=== PATIENT | female | born 1955 | race Caucasian/White ===

== ENCOUNTER 2019-08-23 11:10 | Emergency (ER) | payer MEDICARE, MEDICAID, SELFPAY ==
[2019-08-23 11:16] VITALS: BMI 25.7
[2019-08-23 11:20] VITALS: BP 230/121; PULSE 97; RESP 18; TEMP 36.8; O2SAT 96
--- NOTE | 2019-08-23 11:21 | ECG_ITS ---
Measurements Intervals [place] Rate: 85 P: 76 OK: 143 QRS: 46 QRSD: 94 T: 62 QT: 376 QTc: 447 SINUS RHYTHM POSSIBLE LEFT ATRIAL ENLARGEMENT [-0.1mV P WAVE IN V1/V2] POSSIBLE RIGHT VENTRICULAR CONDUCTION DELAY [RSR (QR) IN V1/V2] No previous ECG available for comparison Electronically Signed On 08-23-2019 14:16:05 CDT by Angela Mcnair M.D. [id number] f
--- NOTE | 2019-08-23 11:21 | XR_ITS ---
WS: [id number] XR chest 2V* [id number] REASON FOR EXAM: cp FINDINGS: The heart and mediastinal interfaces are normal. The lung jay are adequately aerated no pneumonia, pleural effusion, pulmonary edema, There is no pneumothorax or mass effect. The hilum is and apices are normal. There is arteriosclerotic changes seen in the arch of the aorta. No osseous abnormalities. XR/XR chest 2V* [id number] IMPRESSION: Arteriosclerotic changes.
--- NOTE | 2019-08-23 11:22 | W.ED.GENADLT ---
HPI - General Adult General: Chief complaint: General Medical Stated complaint: HIGH BP, PAIN NECK RT SIDE Time Seen by Provider: 08/23/19 11:13 Source: patient Mode of arrival: ambulatory Limitations: no limitations History of Present Illness: HPI narrative: 63-year-old female states she has a history high blood pressure. She states she has not taken her meds in 6 months due to moving here. She states she went to urgent care she needed blood pressure medicines. States her blood pressure was running very high and is 230/120 here. Patient states she had a sharp neck pain and slight headache. Denies any chest pain or passing out. Associated symptoms: Deny chest pain, dyspnea, headache(s), nausea, rash or vomiting Review of Systems Const: Denies: fever, chills, body aches or change in appetite Eyes: Denies: blurry vision or eye discomfort ENMT: Denies: throat pain or dental pain Card: Denies: chest pain Resp: Denies: shortness of breath GI: Denies: abdominal pain, nausea, vomiting or diarrhea : Denies: painful urination Musc: Reports: neck pain Skin/Breast: Denies: rash Neuro: Denies: headache Psych: Denies: depression Law/Lymph: Denies: easy bruising All/Imm: Denies: hives PFSH ED PFSH: Social History Smoking and tobacco status: current every day smoker Physical Exam Const: COMMON NORMALS: no apparent distress, oriented x3 and healthy appearing HENMT: COMMON NORMALS: normocephalic and head/scalp atraumatic HEAD & SCALP: normocephalic and atraumatic Eye: COMMON NORMALS: PERRL and EOMs intact bilaterally PUPIL: Yes PERRL Neck/C-Spine: COMMON NORMALS: full ROM and supple OTHER: point tender over right side of neck Chest: COMMONS NORMALS: inspection of chest normal and palpation of chest normal Resp: COMMON NORMALS: normal respiratory effort, no retractions, no use of accessory muscles and clear to auscultation bilaterally AUSCULTATION: clear to auscultation bilaterally Cardio: COMMON NORMALS: regular rate, regular rhythm and no murmurs RATE: regular rate RHYTHM: regular rhythm GI: COMMON NORMALS: normal to inspection, nondistended, normoactive bowel sounds, soft to palpation, non-tender and no masses PALPATION: Yes soft Extremity: COMMON NORMALS: normal to inspection and full ROM Neuro: COMMON NORMALS: oriented x3, moves all extremities and no focal motor deficits Psych: COMMON NORMALS: mental status grossly normal, thought process normal and cooperative THOUGHT PROCESS: normal thought process Skin: COMMON NORMALS: no rashes or lesions noted and no wounds GENERAL SKIN EXAM: no rashes or lesions noted Course Vital Signs: Vital signs: Vital Signs Temperature 98.3 F 08/23/19 11:20 Pulse Rate 79 08/23/19 12:28 Respiratory Rate 16 08/23/19 12:28 Blood Pressure 207/116 08/23/19 12:28 Pulse Oximetry 95 08/23/19 12:28 MDM - General Adult MDM Narrative: Medical decision making narrative: Patient presents here with high blood pressure is been untreated for months. She has neck pain is likely muscular. Patient is well-appearing here and has no signs of cardiac disease. Will start patient on blood pressure medicine she is stable for discharge Imaging Data^: CXR: Attestation: I personally reviewed and interpreted this imaging study as follows: Radiologist's impression: [address] [address] XRay Report Signed Patient: Rianna Gunn Unit #: [id number] : 1955 Age/Sex: 63 / F ADM Date: 08/23/19 Loc: ER Room/Bed: Attending Dr: Ordering Provider/Ordering MD: Kassie Ortega MD Date of Service: 08/23/19 Procedure(s): XR chest 2V* [id number] Accession Number(s): [id number] Report Number: [id number] WS: [id number] XR chest 2V* [id number] REASON FOR EXAM: cp FINDINGS: The heart and mediastinal interfaces are normal. The lung jay are adequately aerated no pneumonia, pleural effusion, pulmonary edema, There is no pneumothorax or mass effect. The hilum is and apices are normal. There is arteriosclerotic changes seen in the arch of the aorta. No osseous abnormalities. XR/XR chest 2V* [id number] IMPRESSION: Arteriosclerotic changes. EKG Data^: EKG 1: Attestation: I personally reviewed and interpreted this EKG as follows: EKG interpretation date: 08/23/19 EKG interpretation time: 11:32 Interpretation: nsr hr [address] or t wave abnormalities qrs 94 qtc 418 Computer generated interpretation: Chest X-Ray 08/23/19 11:21 IMPRESSION: Arteriosclerotic changes. Discharge Plan Discharge Patient Disposition: Home, Self-Care Clinical Impression: Neck pain Hypertension Qualifiers: Hypertension type: essential hypertension Qualified Code(s): I10 - Essential (primary) hypertension Condition: Stable Prescriptions: New amlodipine 10 mg tablet 10 mg PO DAILY Qty: 60 RF: 0 metoprolol tartrate 50 mg tablet 50 mg PO BID Qty: 90 RF: 0 No Action aspirin 81 mg Tablet,Delayed Release (Dr/Ec) 81 mg PO DAILY RF: 0 famotidine 20 mg Tablet 20 mg PO BID RF: 0 metoprolol tartrate 50 mg Tablet 50 mg PO BID RF: 0 alendronate 70 mg Tablet 70 mg PO Q7D RF: 0 Requip 0.25 mg Tablet 1 mg PO BEDTIME RF: 0 amlodipine 10 mg Tablet 10 mg PO DAILY RF: 0 Nitrostat 0.4 mg Tablet, Sublingual 0.4 mg SUBLINGUAL Q5M PRN (Reason: Chest Pain) RF: 0 albuterol sulfate 90 mcg/actuation Hfa Aerosol Inhaler 1 puff INHALATION QID PRN (Reason: Shortness Of Breath) RF: 0 Discharge Orders: Discharge Order (Routine); Ordered 08/23/19 Ordered By: Kassie Ortega Discharge Diet: Advance as tolerated Discharge Activity: Resume usual activity Patient Instructions: Hypertension (ED) Coding Level of Care Code ED Licensed Sales Assistant for Chg Fwd Exam Comprehensive
[2019-08-23 11:39] VITALS: BP 218/149
[2019-08-23] MEDS: cloNIDine 0.1 mg Tablet 0.2 MG PO (11:39)
[2019-08-23] MEDS: HYDROcodone-acetaminophen 5-325 mg Tablet 1 TAB PO (11:39)
[2019-08-23] MEDS: metoprolol succinate ER (24 HR) 50 mg Tablet PO (12:27)
[2019-08-23 12:28] VITALS: BP 207/116; PULSE 79; RESP 16; O2SAT 95
[2019-08-23 13:08] VITALS: BP 185/126; PULSE 83; RESP 17; O2SAT 98
== END 2019-08-23 13:08 | disposition home or self-care (01) ==
PROVIDERS: Emergency Provider Emergency Medicine
DX: I10 Essential (primary) hypertension (principal); M54.2 Cervicalgia; Z79.82 Long term (current) use of aspirin; F17.210 Nicotine dependence, cigarettes, uncomplicated
CPT/HCPCS: 12345; 71046; 93005; 99281; 99283

== ENCOUNTER 2019-10-31 10:28 | Outpatient (CLI) | payer MEDICARE, MEDICAID, SELFPAY ==
--- NOTE | 2019-10-31 11:15 | MR_ITS ---
WS: [id number] MRI CERVICAL SPINE NONCONTRAST TECHNIQUE: Sagittal T1, T2 and STIR imaging. Axial T2, gradient, and fiesta imaging. CLINICAL INFORMATION: CERVICALGIA COMPARISON: None FINDINGS: Some images degraded by motion. Mild cervical curve. Slight exaggeration normal cervical lordosis. No high-grade central canal stenos is. Cord signal is normal. Mild spondylitic changes. C2-C3: Mild right facet arthropathy. Spinal canal and foramen are patent. C3-C4: Mild bilateral bony foraminal narrowing. Moderate facet arthropathy. Spinal canal is patent. C4-C5: Mild disc bulging with osteophytic ridging. Moderate to advanced facet arthropathy. Moderate l eft and mild right bony foraminal narrowing. Mild central canal stenosis. C5-C6: Disc osteophyte complexes with endplate ridging. Mild central canal stenosis. Moderate to adva nced facet arthropathy. Moderate to severe bilateral bony foraminal narrowing worse in the left. C6-C7: Mild disc bulging with osteophytic ridging. Advanced left facet arthropathy. Moderate to sever e bilateral bony foraminal narrowing. Mild central canal stenosis. C7-T1: Moderate left and no significant right foraminal narrowing. Spinal canal is patent. Tiny disc protrusions in the upper thoracic spine at T2-3 and T3-4. MR/MR cervical spin wo con* [id number] IMPRESSION: 1. Moderate spondylitic changes cervical spine. No high-grade central canal st enosis. Cord signal is normal. 2. Mild central canal stenosis C4-C6 due to disc osteophyte complexes with fac et arthropathy. This is worse at C6-C7. 3. Multilevel moderate to severe bony foraminal narrowing worse at bilateral C 5-C6 and C6-C7. 4. Moderate to advanced facet arthropathy throughout the cervical spine worse at bilateral C3-4, right C4-5, bilateral C5-C6 and left C6-C7.
--- NOTE | 2019-10-31 11:15 | XR_ITS ---
WS: [id number] Lateral views of cervical spine in the flexion, extension and neutral positions. 10/31/2019 Clinical Data: CERVICALGIA Comparison: None. Findings: There is an anterolisthesis of 0.3 cm of C4 on C5. No prevertebral soft tissue swelling is seen. No c ompression fractures are seen. There is minimal osteoarthritic spurring of the anterior inferior C3 v ertebral body. On flexion and extension there is no change in the subluxation. There is no limitation of motion. XR/XR cervical spine fl/ex [id number] Impression: 1. Minimal anterolisthesis of C4 on C5 is 0.3 cm which does not change on flexi on or extension. 2. Negative for limitation of motion on flexion or extension.
== END 2019-10-31 10:29 | disposition home or self-care (01) ==
LOC: RADWPI 10:34
PROVIDERS: Family Provider Nurse Practitioner Family; PCP Nurse Practitioner Family; Visit Provider Nurse Practitioner
DX: M54.2 Cervicalgia (principal); M48.02 Spinal stenosis, cervical region; M25.78 Osteophyte, vertebrae; M47.812 Spondylosis without myelopathy or radiculopathy, cervical region
CPT/HCPCS: 72040; 72141

== ENCOUNTER → 2019-12-26 09:23 | Outpatient (BNVA) | payer MEDICARE, MEDICAID, SELFPAY | PROVIDERS: Family Provider Nurse Practitioner Family; PCP Nurse Practitioner Family; Visit Provider Internal Medicine Rheumatology | DX: M25.50 Pain in unspecified joint (principal); Z79.899 Other long term (current) drug therapy; Z11.59 Encounter for screening for other viral diseases; Z11.1 Encounter for screening for respiratory tuberculosis; R70.0 Elevated erythrocyte sedimentation rate; F17.210 Nicotine dependence, cigarettes, uncomplicated | CPT/HCPCS: 36415; 82306; 85651; 86038; 86140; 86480; 86704; 86803; 87340; 99204 ==

== ENCOUNTER → 2019-12-31 14:51 | Outpatient (BNVA) | payer MEDICARE, MEDICAID, SELFPAY | PROVIDERS: Family Provider Nurse Practitioner Family; PCP Nurse Practitioner Family; Visit Provider Obstetrics & Gynecology | DX: R35.0 Frequency of micturition (principal) | CPT/HCPCS: 81000 ==

== ENCOUNTER 2020-01-09 08:26 | Outpatient (CLI) | payer MEDICARE, MEDICAID, SELFPAY ==
--- NOTE | 2020-01-09 08:38 | XR_ITS ---
WS: [id number] RIGHT FOOT: 3 VIEW(S) TECHNIQUE: AP, oblique and lateral. HISTORY: inflammatory arthritis COMPARISON: None available. No acute fracture or dislocation. Mild narrowing of the first metatarsophalangeal joint. Normal alignment at the tarsometatarsal articu lation. Orthopedic hardware at the ankle. No soft tissue abnormality or bone destruction. XR/XR foot RT min 3V* [id number] IMPRESSION: Mild osteoarthritis at the first metatarsophalangeal joint.
--- NOTE | 2020-01-09 08:38 | XR_ITS ---
WS: [id number] CHEST 2 VIEWS HISTORY: inflammatory arthritis COMPARISON: 08/23/2019 Lungs: Hyperinflated lungs with emphysema. No pulmonary nodule. No pneumonia. No pleural effusion. Cardiac size: Normal. Mediastinum/Aorta: Mild atherosclerosis aorta. Bones: Mild degenerative changes of arthritis at the AC joints. Mild increase in thoracic kyphosis. XR/XR chest 2V* [id number] IMPRESSION: 1. Mild emphysema and calcified aorta. 2. No pneumonia.
--- NOTE | 2020-01-09 08:38 | XR_ITS ---
WS: [id number] RIGHT HAND: 3 VIEW(S) TECHNIQUE: PA, oblique and lateral. HISTORY: inflammatory arthritis COMPARISON: 11/01/2019 No acute fracture or dislocation. Mild narrowing of the interphalangeal joints. There is also mild narrowing of the metatarsophalangeal joints. Small spurs at the third and fourth metatarsal heads. No erosions. No subluxation. Mild dege nerative changes and narrowing at the distal radial ulnar joint. XR/XR hand RT min 3V* [id number] IMPRESSION: Mild osteoarthritis. No erosions identified.
--- NOTE | 2020-01-09 08:38 | XR_ITS ---
WS: [id number] LEFT FOOT: 3 VIEW(S) TECHNIQUE: AP, oblique and lateral. HISTORY: inflammatory arthritis COMPARISON: None available. No acute fracture or dislocation. Normal tarsal/metatarsal alignment. No soft tissue abnormality or bone destruction. XR/XR foot LT min 3V* [id number] IMPRESSION: Normal LEFT foot.
--- NOTE | 2020-01-09 08:38 | XR_ITS ---
WS: [id number] LEFT HAND: 3 VIEW(S) TECHNIQUE: PA, oblique and lateral. HISTORY: inflammatory arthritis COMPARISON: 11/01/2019 No acute fracture or dislocation. Mild narrowing of the interphalangeal joints. No osteopenia. No definite erosions are identified. Jimmy rowing of the distal radial ulnar joint with spurring at the distal ulna. XR/XR hand LT min 3V* [id number] IMPRESSION: 1. Mild narrowing of the interphalangeal joints. 2. No erosions.
== END 2020-01-09 08:27 | disposition home or self-care (01) ==
PROVIDERS: Family Provider Nurse Practitioner Family; PCP Nurse Practitioner Family; Visit Provider Internal Medicine Rheumatology
DX: M19.90 Unspecified osteoarthritis, unspecified site (principal); I70.0 Atherosclerosis of aorta; M19.071 Primary osteoarthritis, right ankle and foot; M19.041 Primary osteoarthritis, right hand
CPT/HCPCS: 71046; 73130; 73630

== ENCOUNTER 2020-01-16 11:12 | Outpatient (CLI) | payer MEDICARE, MEDICAID, SELFPAY ==
--- NOTE | 2020-01-16 11:18 | MM_ITS ---
WS: [id number] SCREENING DIGITAL MAMMOGRAM WITH CAD HISTORY: SCREENING COMPARISON: 07/24/2018 Bilateral CC and MLO views submitted. Computer aided detection analyzed. Breast composition: The breasts are heterogeneously dense, which may obscure small masses. There are numerous bilateral partially obscured high density masses within each breast near the upper outer josefa drants and 12:00. These masses were probably present on the prior examination also. Prior outside [facility] was read as negative as there were more studies for comparison. As there is only one study for comparison additional imaging should be obtained. MM/[place] [id number] IMPRESSION: BI-RADS: 0-Incomplete: Need additional imaging evaluation FOLLOW UP: Need Additional Imaging Recommend bilateral ultrasound evaluation of the upper-outer quadrants of each breast. I suspect there are multiple cysts present. If any of these masses are solid additional imaging by mammography can be obtained. Masses were seen on th e prior study from 07/24/2018 but they appear slightly more obvious today. No solitario or ultrasounds available.
== END 2020-01-16 11:13 | disposition home or self-care (01) ==
LOC: RADSHAW 11:16
PROVIDERS: PCP Nurse Practitioner Family; Visit Provider Nurse Practitioner Family
DX: Z79.899 Other long term (current) drug therapy (principal); Z12.31 Encounter for screening mammogram for malignant neoplasm of breast; R76.8 Other specified abnormal immunological findings in serum; N63.21 Unspecified lump in the left breast, upper outer quadrant; N63.11 Unspecified lump in the right breast, upper outer quadrant
CPT/HCPCS: 36415; 77067; 87517; 87522

== ENCOUNTER → 2020-01-24 10:13 | Outpatient (BNVA) | payer MEDICARE, MEDICAID, SELFPAY | PROVIDERS: Family Provider Nurse Practitioner Family; PCP Nurse Practitioner Family; Visit Provider Internal Medicine Rheumatology | DX: M06.041 Rheumatoid arthritis without rheumatoid factor, right hand (principal); M06.042 Rheumatoid arthritis without rheumatoid factor, left hand; Z79.899 Other long term (current) drug therapy; R70.0 Elevated erythrocyte sedimentation rate; F17.210 Nicotine dependence, cigarettes, uncomplicated | CPT/HCPCS: 99214 ==

== ENCOUNTER 2020-02-10 13:41 | Emergency (ER) | payer MEDICARE, MEDICAID, SELFPAY ==
[2020-02-10 13:44] VITALS: BP 208/97; PULSE 68; RESP 18; TEMP 36.2; O2SAT 96; BMI 30.1
--- NOTE | 2020-02-10 13:50 | XRR_ITS ---
PROCEDURE INFORMATION: Exam: XR Chest, 1 View Exam date and time: 02/10/2020 1:51 PM Age: 64 years old Clinical indication: Chest pain; Additional info: Cp TECHNIQUE: Imaging protocol: XR of the chest Views: 1 view. COMPARISON: CR XR chest 2V* [id number] 01/09/2020 8:48 AM FINDINGS: Lungs: Unremarkable. No consolidation. Pleural space: Unremarkable. No pleural effusion. No pneumothorax. Heart/Mediastinum: Unremarkable. No cardiomegaly. Bones/joints: Unremarkable. XR/XR chest 1V portable [id number] IMPRESSION: No acute findings.
--- NOTE | 2020-02-10 13:50 | ECG_ITS ---
[facility] Test Date: 2020-02-10 Pat Name: Rianna Gunn Department: Room: Gender: Female Data Coordinator: : 1955 Requested By: Kassie Ortega Order Number: [id number] Katelyn MD: Angela Mcnair M.D. Measurements Intervals [place] Rate: 79 P: 61 MS: 157 QRS: 19 QRSD: 89 T: 40 QT: 373 QTc: 428 Interpretive Statements SINUS RHYTHM POSSIBLE LEFT ATRIAL ENLARGEMENT [-0.1mV P WAVE IN V1/V2] POSSIBLE RIGHT VENTRICULAR CONDUCTION DELAY [RSR (QR) IN V1/V2] Compared to ECG 08/23/2019 11:32:16 No significant changes Electronically Signed On 02-10-2020 14:26:22 CDT by Angela Mcnair M.D. [id number] f
--- NOTE | 2020-02-10 13:51 | W.ED.CHESTPA ---
HPI - Chest Pain General: Chief Complaint: Chest Pain Stated Complaint: cp/ heart burn/ back pain Time Seen by Provider: 02/10/20 13:45 Source: patient Mode of arrival: ambulatory Limitations: no limitations History of Present Illness: HPI narrative: 64-year-old female states she has a long history of heartburn and typically takes omeprazole. She has been out of it for 2 to 3 days. States that today she has been having a severe epigastric pain that radiates into her chest that is a burning pain. She denies any worsening improving factors. Patient denies any fever or shortness of breath. Associated symptoms: Reports abdominal pain; Deny dyspnea or fever(s) Review of Systems Const: Denies: fever(s), chills, body aches or change in appetite Eyes: Denies: blurry vision or eye discomfort ENMT: Denies: throat pain or dental pain Card: Reports: chest pain Resp: Denies: dyspnea GI: Reports: abdominal pain : Denies: dysuria Musc: Denies: neck pain or back pain Skin/Breast: Denies: rash Neuro: Denies: headache(s) Psych: Denies: depression Law/Lymph: Denies: easy bruising All/Imm: Denies: urticaria PFSH ED PFSH: Medical History CAD (coronary artery disease) Carpal tunnel syndrome of right wrist COPD (chronic obstructive pulmonary disease) Elevated erythrocyte sedimentation rate GERD (gastroesophageal reflux disease) High risk medication use Immunization counseling Inflammatory arthritis Osteoarthritis Seronegative rheumatoid arthritis of both hands Stress incontinence Surgical History H/O heart artery stent H/O rotator cuff surgery History of ankle surgery History of appendectomy History of hernia surgery History of tonsillectomy Family History Mother Breast cancer Diagnosed in her 60's Diabetes Hypertension Sister Colon cancer, Onset Age: 67 Family/Other Cervical cancer maternal first cousin Grandfather CAD (coronary artery disease) paternal Denies family history of Ovarian cancer Hyperlipidemia Chronic kidney disease (CKD) Anesthesia complication Lung disease Uterine cancer Stroke Social History Smoking and tobacco status: current every day smoker cigarettes Packs smoked per day: 1 Alcohol intake: current Alcohol intake frequency: few times a month Alcohol type: beer Physical Exam Const: COMMON NORMALS: no acute distress, patient oriented x3 and healthy appearing HENMT: COMMON NORMALS: normocephalic and atraumatic HEAD & SCALP: normocephalic and atraumatic Eye: COMMON NORMALS: Equal, round and reactive pupils present and EOMs intact bilaterally PUPIL: Yes Equal, round and reactive pupils present Neck/C-Spine: COMMON NORMALS: full ROM and supple Chest: COMMONS NORMALS: normal inspection of the chest and normal palpation of entire chest wall Resp: COMMON NORMALS: normal respiratory effort, No retractions, No use of accessory muscles and clear to auscultation bilaterally AUSCULTATION: clear to auscultation bilaterally Cardio: COMMON NORMALS: regular rate, regular rhythm and No murmurs present (Cardio) RATE: regular rate RHYTHM: regular rhythm GI: COMMON NORMALS: Normal to inspection, nondistended, normoactive bowel sounds present, Soft to palpation, non-tender and no masses PALPATION: Yes Soft to palpation Extremity: COMMON NORMALS: normal to inspection and full ROM Neuro: COMMON NORMALS: patient oriented x3, moves all extremities and no focal motor deficits Psych: COMMON NORMALS: mental status grossly normal, Normal thought process present and cooperative THOUGHT PROCESS: Normal thought process present Skin: COMMON NORMALS: no rashes or lesions noted and no wounds GENERAL SKIN EXAM: no rashes or lesions noted Course Vital Signs: Vital signs: Vital Signs Temperature 97.2 F L 02/10/20 13:44 Pulse Rate 76 02/10/20 15:46 Respiratory Rate 16 02/10/20 15:46 Blood Pressure 171/100 02/10/20 15:46 Pulse Oximetry 93 02/10/20 15:46 MDM - Chest Pain MDM Narrative: Medical decision making narrative: Patient presents here with chest pain and abdominal pain is atypical in nature. Her pain is burning in sensation is likely reflux as she has not been taking her meds. She also does have some point tenderness in her chest. Her troponin here is negative. Her lab work is normal besides having hypercalcemia. I informed her she needs to follow-up with her PCP this week and have her calcium level redrawn. She is return to the ER if worsening. She understands agrees to plan. Lab Data: Labs: Lab Results 02/10/20 02/10/20 02/10/20 Range/Units 14:05 14:05 14:05 WBC 9.7 (4.0-10.0) 10^3/ uL RBC 4.70 (4.1-5.3) 10^6/u L Hgb 14.5 (11.5-15.3) g/dL Hct 44.0 (37.0-47.0) % MCV 93.6 (81-99) fL MCH 30.9 (28.0-34.0) pg MCHC 33.0 (30.0-36.0) g/dL RDW 12.2 (12.1-15.1) % Plt Count 305 (130-400) 10^3/c mm MPV 10.4 (7.4-10.4) fL Neut % (Auto) 70.4 % Lymph % (Auto) 16.2 % [place] % (Auto) 8.1 % Eos % (Auto) 4.2 % Baso % (Auto) 0.7 % Neut # (Auto) 6.85 (1.8-7.7) 10^3/u L Lymph # (Auto) 1.6 (0.8-4.8) 10^3/u L [place] # (Auto) 0.8 (0.2-0.9) 10^3/u L Eos # (Auto) 0.4 (0.0-0.8) 10^3/u L Baso # (Auto) 0.1 (0.0-0.1) 10^3/u L Nucleated RBC % (a uto) 0 % Nucleated RBCs # 0.0 /100WBC Sodium 141 (136-145) mmol/L Potassium 4.1 (3.5-5.1) mmol/L Chloride 98 (98-107) mmol/L Carbon Dioxide 28 (22-29) mmol/L Anion Gap 19.1 H (5-19) BUN 23 (8-23) mg/dL Creatinine 1.1 H (0.5-0.9) mg/dL GFR Calculation 49.8 L (90-130) mL/min Glucose 125 H (65-115) mg/dL Calculated Osmolal ity 297 H (285-295) mOsm/k g Calcium 13.8 H* (8.5-10.5) mg/dL Total Bilirubin 0.4 (0.15-1.2) mg/dL AST 20 (0-32) U/L ALT 23 (0-33) U/L Alkaline Phosphata se 81 (35-105) IU/L Troponin T Baselin e 9 (0-10) ng/L Total Protein 7.8 (6.6-8.7) g/dL Albumin 4.9 (3.5-5.2) g/dL Globulin 2.9 (1.3-4.6) g/dL Lipase 59 (13-60) U/L Imaging Data^: CXR: Radiologist's impression: [address] [address] XRay Report Signed Patient: Rianna Gunn Unit #: [id number] : 1955 Age/Sex: 64 / F ADM Date: 02/10/20 Loc: ER Room/Bed: Attending Dr: Ordering Provider/Ordering MD: Kassie Ortega MD Date of Service: 02/10/20 Procedure(s): XR chest 1V portable [id number] Accession Number(s): [id number] Report Number: [id number] PROCEDURE INFORMATION: Exam: XR Chest, 1 View Exam date and time: 02/10/2020 1:51 PM Age: 64 years old Clinical indication: Chest pain; Additional info: Cp TECHNIQUE: Imaging protocol: XR of the chest Views: 1 view. COMPARISON: CR XR chest 2V* [id number] 01/09/2020 8:48 AM FINDINGS: Lungs: Unremarkable. No consolidation. Pleural space: Unremarkable. No pleural effusion. No pneumothorax. Heart/Mediastinum: Unremarkable. No cardiomegaly. Bones/joints: Unremarkable. XR/XR chest 1V portable [id number] IMPRESSION: No acute findings. EKG Data^: EKG 1: Attestation: I personally reviewed and interpreted this EKG as follows: EKG interpretation date: 02/10/20 EKG interpretation time: 13:54 Interpretation: Normal sinus rhythm heart rate [address] or T wave abnormalities QRS 89 QTc 407 Discharge Plan Discharge Patient Disposition: Home Clinical Impression: Atypical chest pain, Hypercalcemia Condition: Stable Prescriptions: No Action amitriptyline 25 mg tablet 25 mg PO BEDTIME RF: 0 ipratropium-albuterol 0.5 mg-3 mg(2.5 mg base)/3 mL solution for nebulization 3 ml INHALATION Q6H PRN (Reason: Shortness Of Breath) RF: 0 prednisone 10 mg tablet See Rx Instructions PO .COMPLEX Qty: 30 RF: 2 folic acid 1 mg tablet 1 mg PO DAILY Qty: 90 RF: 3 oxybutynin chloride 5 mg tablet extended release 24hr 5 mg PO DAILY Qty: 90 RF: 1 rosuvastatin 20 mg capsule, sprinkle 20 mg PO DAILY RF: 0 aspirin [Adult Low Dose Aspirin] 81 mg tablet,delayed release (DR/EC) 81 mg PO DAILY RF: 0 beet root 1,000 mg 1 tab PO DAILY RF: 0 ascorbic acid (vitamin C) 500 mg tablet 1 gm PO DAILY RF: 0 multivitamin Tablet 1 tab PO DAILY RF: 0 calcium carbonate [Calcium 600] 600 mg calcium (1,500 mg) tablet 600 mg PO DAILY RF: 0 nitroglycerin [Nitrostat] 0.4 mg Tablet, Sublingual 0.4 mg SUBLINGUAL Q5M PRN (Reason: Chest Pain) RF: 0 albuterol sulfate 90 mcg/actuation Hfa Aerosol Inhaler 2 puff INHALATION QID PRN (Reason: Shortness Of Breath) RF: 0 amlodipine 10 mg tablet 10 mg PO DAILY Qty: 60 RF: 0 metoprolol tartrate 50 mg tablet 50 mg PO BID Qty: 90 RF: 0 ropinirole 1 mg tablet 1 mg PO BEDTIME RF: 0 omeprazole 40 mg Capsule,Delayed Release(Dr/Ec) 40 mg PO DAILY RF: 0 methotrexate sodium 2.5 mg tablet 15 mg PO Q7D RF: 0 diclofenac sodium 1 % gel 2 gm TOPICAL QID PRN (Reason: Pain) RF: 0 Discharge Orders: Discharge Order (Routine); Ordered 02/10/20 Ordered By: Kassie Ortega Referrals: Kortney Aguirre FNP [Primary Care Provider] - 1-3 days Discharge Diet: Advance as tolerated Discharge Activity: Resume usual activity Patient Instructions: Chest Pain (ED), Hypercalcemia (ED) Discharge Date/Time: 02/10/20 15:47 Coding Level of Care Code ED Sandblaster Supervisor for Chg Fwd Exam Comprehensive
[2020-02-10] MEDS: lidocaine 2% viscous 15 ML, aluminum-mag hydrox-simethicon 30 ML, sucralfate oral liq 1 GM PO (14:08)
[2020-02-10] MEDS: ondansetron 2 mg/ML SDV 2 mL 4 MG IVP ×2 (14:09→15:17)
[2020-02-10 14:17] LABS: Basophils # 0.1 10^3/uL (0.0-0.1); Basophils % 0.7 %; Eosinophils # 0.4 10^3/uL (0.0-0.8); Eosinophils % 4.2 %; Hemoglobin 14.5 g/dL (11.5-15.3); Lymphocytes # 1.6 10^3/uL (0.8-4.8); Lymphocytes % 16.2 %; Mean Corpuscular Hemoglobin 30.9 pg (28.0-34.0); Mean Corpuscular Volume 93.6 fL (81-99); Mean Platelet Volume 10.4 fL (7.4-10.4); Monocytes # 0.8 10^3/uL (0.2-0.9); Monocytes % 8.1 %; Neutrophils # 6.85 10^3/uL (1.8-7.7); Neutrophils % 70.4 %; Nucleated Red Blood Cells % 0 %; Platelet Count 305 10^3/cmm (130-400); Red Cell Distribution Width 12.2 % (12.1-15.1); White Blood Count 9.7 10^3/uL (4.0-10.0)
--- NOTE | 2020-02-10 14:32 | PC.NURSE ---
Read and agree with assessment.
[2020-02-10 14:42] LABS: Alanine Aminotransferase 23 U/L (0-33); Albumin Level 4.9 g/dL (3.5-5.2); Alkaline Phosphatase 81 IU/L (35-105); Anion Gap 19.1 (5-19); Aspartate Amino Transferase 20 U/L (0-32); Blood Urea Nitrogen 23 mg/dL (8-23); Carbon Dioxide 28 mmol/L (22-29); Chloride 98 mmol/L (98-107); Globulin 2.9 g/dL (1.3-4.6); Glomerular Filtration Rate 49.8 mL/min (90-130); Glucose 125 mg/dL (65-115); Lipase 59 U/L (13-60); Osmolality Calculated 297 mOsm/kg (285-295); Potassium 4.1 mmol/L (3.5-5.1); Sodium 141 mmol/L (136-145); Total Bilirubin 0.4 mg/dL (0.15-1.2); Total Protein 7.8 g/dL (6.6-8.7)
[2020-02-10 14:43] LABS: Troponin(5th) Baseline 9 ng/L (0-10)
[2020-02-10 15:01] LABS: Calcium 13.8 mg/dL (8.5-10.5)
[2020-02-10 15:16] VITALS: RESP 18; O2SAT 94
[2020-02-10] MEDS: morphine 4 mg/mL SDV 1 mL IVP (15:16)
[2020-02-10] MEDS: sodium chloride 0.9% 1,000 ML 999 ML IV (15:17)
[2020-02-10 15:19] VITALS: BP 174/94; PULSE 75; RESP 16; O2SAT 94
[2020-02-10 15:32] VITALS: BP 171/100; PULSE 74; RESP 18; O2SAT 91
[2020-02-10 15:46] VITALS: BP 171/100; PULSE 76; RESP 16; O2SAT 93
== END 2020-02-10 15:47 | disposition home or self-care (01) ==
PROVIDERS: Emergency Provider Emergency Medicine; PCP Nurse Practitioner Family
DX: R07.89 Other chest pain (principal); E83.52 Hypercalcemia; Z79.82 Long term (current) use of aspirin; I25.10 Atherosclerotic heart disease of native coronary artery without angina pectoris; J44.9 Chronic obstructive pulmonary disease, unspecified; F17.210 Nicotine dependence, cigarettes, uncomplicated
CPT/HCPCS: 12345; 71045; 80053; 83690; 84484; 85025; 93005; 96361; 96374; 96375; 96376; 99283; 99284; J2270; J2405; J7030

== ENCOUNTER 2020-02-13 07:02 | Outpatient (CLI) | payer MEDICARE, MEDICAID, SELFPAY ==
--- NOTE | 2020-02-13 07:10 | US_ITS ---
WS: [id number] ULTRASOUND BILATERAL BREASTs HISTORY: ABNORMAL MAMMOGRAM COMPARISON: 01/16/2020, 07/24/2018. TECHNIQUE: 2-D and Doppler. There is dense fibroglandular tissue in the upper outer quadrants of each breast. No masses or distor tion or cysts are identified. There are some small mildly prominent ducts. No intraductal nodule or m ass. US/US breast BI limited* [id number] IMPRESSION: BI-RADS: 2-Benign FOLLOW-UP: 1 Year Follow-up
== END 2020-02-13 07:03 | disposition home or self-care (01) ==
LOC: RAD 07:04
PROVIDERS: PCP Nurse Practitioner Family; Visit Provider Nurse Practitioner Family
DX: R92.8 Other abnormal and inconclusive findings on diagnostic imaging of breast (principal)
CPT/HCPCS: 76642

== ENCOUNTER → 2020-02-27 08:58 | Outpatient (BNVA) | payer MEDICARE, MEDICAID, SELFPAY | PROVIDERS: PCP Nurse Practitioner Family; Visit Provider Internal Medicine Rheumatology | DX: Z79.899 Other long term (current) drug therapy (principal) | CPT/HCPCS: 36415; 80076; 82565; 85025; 85651; 86140 ==

== ENCOUNTER 2020-03-18 07:18 | Outpatient (CLI) | payer MEDICARE, MEDICAID, SELFPAY ==
--- NOTE | 2020-03-18 07:33 | ECG_ITS ---
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 Interpretive Statements Name of study: Lexiscan stress test Indication: Chest pain PROCEDURE: At the baseline, the blood pressure was 124/78 mmHg with a heart rate of 67 bpm. The electrocardiogram showed normal sinus rhythm, normal axis with nonspecific ST depression. The Lexiscan was infused over a period of 20 seconds. A total of 0.4 milligrams of Lexiscan was infused. The stress phase was continued for a total of 5 minutes. Heart rate at the end of the stress phase was 80 bpm with a blood pressure of 152/82 mmHg. The EKG at the peak infusion revealed sinus rhythm with no significant ST-T wave changes. Study was terminated due to protocol completion. Sestamibi was injected 20 seconds after the Lexiscan infusion. Blood pressure at the end of the recovery phase was 146/81 mmHg with a heart rate of 85 beats per minute. CONCLUSION: 1. No significant EKG changes with the LexiScan infusion 2. No LexiScan induced chest pain or cardiac arrhythmia. 3. Normal blood pressure and heart rate response. 4. Sestamibi/sestamibi perfusion scan pending; see separate report. Electronically Signed On 03-19-2020 13:32:53 TECHNOLOGY AND ENGINEERING TEACHER by Angela Mcnair M.D. [email or web address]
--- NOTE | 2020-03-18 07:33 | NMCV_ITS ---
NM tamiko perf SPECT r/s* [id number] Rianna Gunn Age: 64 Gender: F : 1955 Exam Date: 03/18/2020 08:20 Ordering Phys: Angela Mcnair MD ([email or web address]) Technologist: DANYEL Duckworth Exam Location: [facility] Indications: CHEST PAIN STRESS TEST [facility] IMAGE PROTOCOL Rest/Stress 1 Lexiscan Day Radiopharmaceutical Dose (mCi) Administration Site Administered by Rest: Tc-99m 10.8 IV DANYEL James Sestamibi Stress:Tc-99m 32.5 IV DANYEL Duckworth Sestamiyeison Rest: 18-Mar-2020 60 Discovery 630 Stress: 18-Mar-2020 30 Discovery 630 0.4mg Lexiscan. Images obtained in supine and prone position. SPECT RESULTS Technical Quality: Excellent Raw Data Analysis: Normal Image Corrections: No attenuation or motion correction applied Summed Stress Score: 3 Summed Rest Score: 3 Summed Difference Score: 0 PERFUSION FINDINGS Small sized perfusion abnormality of mild severity of mid infero lateral and apical lateral mcintosh on rest and supine stress images with improved tracer uptake on prone stress images. This is suggestive of attenuation artifact. FUNCTIONAL RESULTS (calculated via Gated SPECT) Stress Image LV EF (%): 85 Stress EDV (mL):67 TID: 1.35 Stress ESV (mL):10 FUNCTIONAL FINDINGS: The left ventricle is normal in size. Transient Ischemia Dilatation of 1.4. There is normal left ventricular systolic function. The left ventricular ejection fraction is hyperdynamic with a value of 85%. There is hyperdynamic left ventricular wall thickening. Normal end-diastolic and end-systolic volumes. IMPRESSIONS 1. Myocardial perfusion imaging is normal. Attenuation artifact noted in mid inferolateral and apical lateral mcintosh. 2. Overall left ventricular systolic function is normal without regional wall motion abnormalities. 3. The left ventricular ejection fraction is hyperdynamic with a value of 85%. 4. Transient ischemic dilation index elevated at 1.4. This may represent hypertensive response/subendocardial ischemia. Clinical correlation is advised. 5. No prior similar studies to compare. Angela Mcnair MD (Electronically Signed) Final Date: 21 March 2020 13:34 S
[2020-03-18 07:39] VITALS: BMI 29.5
[2020-03-18] MEDS: regadenoson 0.4 Mg/5 ml Syringe IVP (09:06)
[2020-03-18 09:18] VITALS: BP 146/81; PULSE 80
== END 2020-03-18 07:19 | disposition home or self-care (01) ==
LOC: CDL 07:23
PROVIDERS: PCP Nurse Practitioner Family; Visit Provider Internal Medicine Cardiovascular Disease
DX: R07.89 Other chest pain (principal); I25.10 Atherosclerotic heart disease of native coronary artery without angina pectoris; I25.9 Chronic ischemic heart disease, unspecified
CPT/HCPCS: 78452; 93017; A9500; J2785

== ENCOUNTER → 2020-04-28 11:09 | Outpatient (BNVA) | payer MEDICARE, MEDICAID, SELFPAY | PROVIDERS: PCP Nurse Practitioner Family; Visit Provider Internal Medicine Rheumatology | DX: M06.041 Rheumatoid arthritis without rheumatoid factor, right hand (principal); M06.042 Rheumatoid arthritis without rheumatoid factor, left hand; Z79.899 Other long term (current) drug therapy; Z98.890 Other specified postprocedural states; F17.210 Nicotine dependence, cigarettes, uncomplicated | CPT/HCPCS: 99214 ==

== ENCOUNTER → 2020-04-29 13:02 | Outpatient (BNVA) | payer MEDICARE, MEDICAID, SELFPAY | PROVIDERS: PCP Nurse Practitioner Family; Referring Provider Nurse Practitioner Family; Visit Provider Anesthesiology Pain Medicine | DX: M47.812 Spondylosis without myelopathy or radiculopathy, cervical region (principal); M54.12 Radiculopathy, cervical region; M50.90 Cervical disc disorder, unspecified, unspecified cervical region; M43.10 Spondylolisthesis, site unspecified; M25.511 Pain in right shoulder; M25.512 Pain in left shoulder; M62.830 Muscle spasm of back; M54.9 Dorsalgia, unspecified | CPT/HCPCS: 99204; 99205 ==

== ENCOUNTER 2020-05-01 10:40 | Outpatient (CLI) | payer MEDICARE, MEDICAID, SELFPAY ==
--- NOTE | 2020-05-01 11:10 | XR_ITS ---
WS: [id number] LATERAL LUMBAR SPINE: 3 view. Lateral radiographs are performed in upright neutral, flexion and extension to the patient's toleranc e. HISTORY: M43.10 - Spondylolisthesis, site unspecified COMPARISON: None available. L5 anterolisthesis by 10.8 mm. Highly suspicious for bilateral pars defects. Severe disc space narrow ing at L5-S1. The remaining disc spaces are narrowed moderately. No fractures or destructive process. Facet joint arthritis is moderate at L4-5 and L5-S1. No instability with flexion or extension. Scattered moderate atherosclerotic plaque within the aorta. XR/XR lumbar spine f/e only [id number] IMPRESSION: Grade 2 spondylolisthesis of L5 with spondylolysis. No lumbar spine instability.
== END 2020-05-01 10:41 | disposition home or self-care (01) ==
PROVIDERS: PCP Nurse Practitioner Family; Visit Provider Anesthesiology Pain Medicine
DX: M43.16 Spondylolisthesis, lumbar region (principal)
CPT/HCPCS: 72120

== ENCOUNTER 2020-05-05 14:10 | Outpatient (CLI) | payer MEDICARE, MEDICAID, SELFPAY ==
--- NOTE | 2020-05-05 14:23 | XR_ITS ---
WS: [id number] SCREENING DEXA SCAN [employer] CLINICAL INFORMATION: POST MENOPAUSAL ESTROGEN DEFICIENCY COMPARISON: None. FINDINGS: The L1-L4 bone mineral density measures 1.079 g/cm2. This corresponds to a T score score of -0.8 and Z score of 0.4. Left femoral neck bone mineral density measures 0.763 g/cm2. This corresponds to a T score of -1.9 an d Z score of -1.0. Right femoral neck bone mineral density measures 0.790 g/cm2. This corresponds to a T score -1.7of an d Z score of -0.8. Mean femoral neck bone mineral density measures 0.777 g/cm2. This corresponds to a T score of -1.8 an d Z score of -0.9. XR/XR DEXA axial skeleton* [id number] IMPRESSION: Osteopenia. Patient's FRAX calculated 10 year probability for major osteoporotic fracture i s 38.1 % and osteoporotic hip fracture is 13.9%.
== END 2020-05-05 14:11 | disposition home or self-care (01) ==
LOC: RADWPI 14:13
PROVIDERS: PCP Nurse Practitioner Family; Visit Provider Nurse Practitioner
DX: Z78.0 Asymptomatic menopausal state (principal); M85.88 Other specified disorders of bone density and structure, other site
CPT/HCPCS: 77080

== ENCOUNTER 2020-06-30 14:52 | Outpatient (CLI) | payer MEDICARE, MEDICAID, SELFPAY ==
--- NOTE | 2020-06-30 15:15 | MR_ITS ---
WS: [id number] MRI LUMBAR SPINE NONCONTRAST TECHNIQUE: Sagittal T1, T2 and STIR imaging. Axial T1 and T2 imaging. CLINICAL INFORMATION: M54.9 - Dorsalgia, unspecified COMPARISON: None. FINDINGS: Mild lumbar curve. No acute compression. Grade 1 anterolisthesis L5 on S1 with disc space narrowing. Chronic spondylolysis L5-S1. L1-L2: Mild annular bulging with slight effacement of ventral thecal sac. Moderate facet arthropathy. Mild right and no significant left foraminal narrowing. Moderate facet arthropathy. Slight narrowing of the right subarticular recess. L2-L3: Shallow central disc protrusion with moderate central canal stenosis. Moderate facet arthropat hy with ligamentum flavum hypertrophy. Mild right and no left foraminal narrowing. L3-L4: Mild annular bulge with mild central canal stenosis. Moderate facet arthropathy. Slight narrow ing of the subarticular recess bilaterally. Mild left foraminal narrowing. L4-L5: Mild annular bulging in combination with facet arthropathy ligament flavum hypertrophy results in moderate to severe central canal stenosis. Impingement traversing L5 nerve roots bilaterally. Mod erate right foraminal narrowing. Left foramen is patent. L5-S1: Grade 1 anterolisthesis with chronic spondylolysis. Slight contact of the traversing S1 nerve roots and mild left to right narrowing of the thecal sac. Moderate facet arthropathy. Moderate bilate ral foraminal narrowing. Small right renal cysts. Visualized pelvic bony structures: Normal. Paravertebral soft tissues: Normal. MR/MR lumbar spine wo con* [id number] IMPRESSION: 1. Mild lumbar curve. No acute compression. Grade 1 anterolisthesis L5 on S1 w ith chronic spondylolysis. 2. Moderate to severe central canal stenosis L4-5 with impingement on the aminata ersing right greater than left L5 nerve roots. Moderate right L4-5 foraminal na rrowing. 3. Moderate central canal stenosis L2-3 due to small central disc protrusion w ith facet arthropathy and ligament flavum hypertrophy. Mild bilateral foraminal narrowing at this level. 4. Mild central canal stenosis L3-4. 5. Moderate to advanced facet arthropathy L4-L5 and L5-S1. 6. Moderate bilateral bony foraminal narrowing L5-S1.
== END 2020-06-30 14:53 | disposition home or self-care (01) ==
LOC: RADSHAW 14:53
PROVIDERS: PCP Nurse Practitioner Family; Visit Provider Orthopaedic Surgery
DX: M54.9 Dorsalgia, unspecified (principal); M47.816 Spondylosis without myelopathy or radiculopathy, lumbar region; M47.817 Spondylosis without myelopathy or radiculopathy, lumbosacral region; M48.061 Spinal stenosis, lumbar region without neurogenic claudication; M51.26 Other intervertebral disc displacement, lumbar region
CPT/HCPCS: 36415; 72050; 72148; 80076; 82565; 85025; 86140

== ENCOUNTER 2020-10-21 09:22 | Outpatient (CLI) | payer MEDICARE, MEDICAID, SELFPAY ==
--- NOTE | 2020-10-21 09:35 | NM_ITS ---
WS: [id number] NUCLEAR MEDICINE GASTRIC EMPTYING EXAMINATION HISTORY: HIATAL HERNIA COMPARISON: None available. TECHNIQUE: The patient ingested a meal containing 1.04 mCi of Tc 99m sulfur colloid mixed with eggs. The patient was placed in supine position and imaging over the abdomen was performed for a total of 9 0 minutes. Computer acquisition with the region of interest placed over the stomach to evaluate gastr ic emptying half-time. There is mild delay in gastric emptying. A 120 minutes only 34% has emptied from the stomach. NM/[place] [id number] IMPRESSION: Mild delay in gastric emptying. Mild gastroparesis.
== END 2020-10-21 09:23 | disposition home or self-care (01) ==
LOC: RAD 09:28
PROVIDERS: PCP Nurse Practitioner Family; Visit Provider Nurse Practitioner Family
DX: K44.9 Diaphragmatic hernia without obstruction or gangrene (principal); K31.84 Gastroparesis
CPT/HCPCS: 78264; A9541

== ENCOUNTER 2020-10-24 08:48 | Outpatient (CLI) | payer MEDICARE, MEDICAID, SELFPAY ==
--- NOTE | 2020-10-24 08:58 | FL_ITS ---
WS: [id number] UPPER GI WITH AIR TECHNICAL: Double contrast upper GI with thin and thick barium FLUOROSCOPY TIME: 3.1 minutes CLINICAL INFORMATION: HIATAL HERNIA COMPARISON: None. FINDINGS: Swallowing: Normal. Esophagus: Moderate esophageal dysmotility with delayed emptying. Dilatation of the mid to distal eso phagus with reflux esophagitis. Moderate recurrent esophageal hiatal hernia with partial intrathoraci c stomach. Marked reflux is visualized in the upright and supine position to the upper thoracic esoph sarwat and hypopharynx. Gastroesophageal reflux: Severe Stomach: Diffuse thickening of the gastric rugae consistent with gastritis. Normal emptying. Duodenum: Normal duodenal C-loop. Other findings: None. FL/FL upper GI w air* [id number] IMPRESSION: 1. Moderate recurrent esophageal hiatal hernia with partial intrathoracic stom ach. 2. Severe reflux is visualized to the upper thoracic esophagus into the hypoph arynx on the upright and supine position. 3. Evidence of reflux esophagitis in the distal esophagus with gastritis. 4. Moderate esophageal dysmotility with delayed emptying on the upright and ellsworth pine imaging.
== END 2020-10-24 08:49 | disposition home or self-care (01) ==
LOC: RADWPI 08:50
PROVIDERS: PCP Nurse Practitioner Family; Visit Provider Nurse Practitioner Family
DX: K44.9 Diaphragmatic hernia without obstruction or gangrene (principal); K21.9 Gastro-esophageal reflux disease without esophagitis
CPT/HCPCS: 74246

== ENCOUNTER 2021-02-19 08:23 | Outpatient (CLI) | payer MEDICARE, MEDICAID, SELFPAY ==
--- NOTE | 2021-02-19 08:25 | MM_ITS ---
WS: [id number] Bilateral screening digital mammogram, 02/19/2021 Clinical Data: SCREENING Comparison: 01/16/2020, 07/24/2018. Findings: The breast parenchymal pattern shows heterogeneous density No spiculated masses or clustered calcific ations are seen. There are no secondary signs of carcinoma. There are lymph nodes in both axilla. MM/[place] [id number] Impression: 1. Negative bilateral mammogram unchanged. 2. Recommend annual screening mammograms. BIRADS: 1-Negative FOLLOW UP: 1 Year Follow-up The [employer] sales store checker was used.
== END 2021-02-19 08:24 | disposition home or self-care (01) ==
LOC: RADSHAW 08:24
PROVIDERS: PCP Nurse Practitioner Family; Visit Provider Nurse Practitioner Family
DX: Z12.31 Encounter for screening mammogram for malignant neoplasm of breast (principal)
CPT/HCPCS: 77067

== ENCOUNTER → 2021-02-26 09:33 | Outpatient (BNVA) | payer MEDICARE, MEDICAID, SELFPAY | PROVIDERS: PCP Nurse Practitioner Family; Visit Provider Orthopaedic Surgery | DX: Z01.812 Encounter for preprocedural laboratory examination (principal); Z20.822 Contact with and (suspected) exposure to COVID-19 | CPT/HCPCS: 87635 ==

== ENCOUNTER 2021-03-04 17:33 | Inpatient (IN) | payer MEDICARE, MEDICAID, SELFPAY ==
[2021-02-25 11:59] LABS: Basophils # 0.1 10^3/uL (0.0-0.1); Basophils % 1.1 %; Eosinophils # 0.7 10^3/uL (0.0-0.8); Eosinophils % 8.7 %; Hematocrit 38.1 % (37.0-47.0); Hemoglobin 12.5 g/dL (11.5-15.3); Lymphocytes # 2.5 10^3/uL (0.8-4.8); Lymphocytes % 29.7 %; Mean Corpuscular HGB Conc 32.8 g/dL (30.0-36.0); Mean Corpuscular Hemoglobin 30.1 pg (28.0-34.0); Mean Corpuscular Volume 91.8 fl (81-99); Mean Platelet Volume 10.4 fL (7.4-10.4); Monocytes # 0.7 10^3/uL (0.2-0.9); Monocytes % 8.5 %; Neutrophils # 4.27 10^3/uL (1.8-7.7); Neutrophils % 51.8 %; Nucleated Red Blood Cells % 0 %; Platelet Count 266 10^3/cmm (130-400); Red Blood Count 4.15 10^6/uL (4.1-5.3); Red Cell Distribution Width 12.3 % (12.1-15.1); White Blood Count 8.3 10^3/uL (4.0-10.0)
[2021-02-25 12:00] VITALS: BMI 29.2
--- NOTE | 2021-02-25 12:14 | P.ANESASSM_ITS ---
Pre-Anesthetic Assessment Pre-Anesthetic Assessment: Height/Weight: Height 1.6 m Weight 74.843 kg Preop Diagnosis: Back pain Proposed Procedure: Operation Date: 03/04/21 10:30 Proposed Procedures p Posterior Lumbar Interbody Fusion L4/5 L5/S1 41283(x2) 98136 59996 M43.17(Not Applicable) - Ethan Aguilar, DO Familial anesthetic complications: none Social: Social History: Tobacco and No alcohol Exam: Pre-Anes Outpt Exam: alert, oriented x 3, clear to auscultation bilate rally and regular rate & rhythm Airway: Cervical ROM: WNL MP: 1 Dentition: Caps and Other (no bottom teeth, top caps) Pulmonary: Pulmonary: COPD CV/HEM: CV/HEM: CAD (2 stents > 10 years ago) Comments: CONCLUSION: 1. No significant EKG changes with the LexiScan infusion 2. No LexiScan induced chest pain or cardiac arrhythmia. 3. Normal blood pressure and heart rate response. 4. Sestamibi/sestamibi perfusion scan pending; see separate report. GI: GI: GERD and Hiatus hernia Anesthetic Plan: ASA status: 3 Anesthesia: General Risk of > 500 ml blo od loss (7ml/kg in children): No PFSH Anesthesia PFSH: Medical History CAD (coronary artery disease) Carpal tunnel syndrome of right wrist Chronic steroid use COPD (chronic obstructive pulmonary disease) Elevated erythrocyte sedimentation rate GERD (gastroesophageal reflux disease) Hiatal hernia High risk medication use Hyperlipidemia Hypertension Immunization counseling Inflammatory arthritis Osteoarthritis Seronegative rheumatoid arthritis of both hands Stress incontinence Surgical History H/O heart artery stent H/O rotator cuff surgery History of ankle surgery History of appendectomy History of appendectomy History of hernia surgery History of tonsillectomy Family History Mother Breast cancer Diagnosed in her 60's Diabetes Hypertension Sister Colon cancer, Onset Age: 67 Family/Other Cervical cancer maternal first cousin Grandfather CAD (coronary artery disease) paternal Other FH: CABG (coronary artery bypass surgery) Denies family history of Ovarian cancer Hyperlipidemia Chronic kidney disease (CKD) Anesthesia complication Lung disease Uterine cancer Stroke Social History Smoking and tobacco status: current every day smoker cigarettes Packs smoked per day: 1 Years cigarettes smoked: 53 Alcohol intake: current Alcohol intake frequency: few times a month Alcohol type: beer History of recent travel: No Data Anesthesia CBC & Chem 7: 02/25/21 11:50 Other Labs: Laboratory Results - last 48 hr 02/25/21 11:50 WBC 8.3 RBC 4.15 Hgb 12.5 Hct 38.1 MCV 91.8 MCH 30.1 MCHC 32.8 RDW 12.3 Plt Count 266 MPV 10.4 Neut % (Auto) 51.8 Lymph % (Auto) 29.7 [place] % (Auto) 8.5 Eos % (Auto) 8.7 Baso % (Auto) 1.1 Neut # (Auto) 4.27 Lymph # (Auto) 2.5 [place] # (Auto) 0.7 Eos # (Auto) 0.7 Baso # (Auto) 0.1 Nucleated RBC % (auto) 0 Nucleated RBCs # 0.0 Cardiac Studies: No Data to Display
[2021-03-04] VITALS (12 sets, daily range): BP systolic 103–129; BP diastolic 62–89; PULSE 72–100; RESP 15–25; TEMP 36.5–36.7; O2SAT 90–98
--- NOTE | 2021-03-04 | SCC_ITS ---
Procedure Done: 1. L4/5 Interbody fusion with posterolateral fusion 2. L5/S1 Interbody fusion with posterolateral fusion 3. Instrumentation L4-S1 4. Cage at L4/5 5. Cage at L5/S1 6. Laminectomy L4 7. Laminectomy L5 8. use of autograft from same incision 9. allograft 10. Bone marrow aspirate from left iliac crest 11. Use of computer navigation/sterotactic of lumbar spine 5 seconds of fluoroscopic guidance, for a cumulative dose of 24.5 mGy, was provided to Dr. Aguilar by the radiology department. C-arm images of the lumbar spine were saved for the patient's permanent record. [facility]
--- NOTE | 2021-03-04 | XR_ITS ---
WS: [id number] Exam: XR lumbar spine 1V [id number] Date/Time of Exam: 03/04/2021 12:00 AM Reason For Exam: Lumbar fusion Intraoperative AP and lateral images of the lower lumbar spine are submitted for evaluation. There are pedicle screws in place from L4 to S1. The AP view shows posterior holly placement on the lef t. There are disc spacers at L5-S1 and L4-5. Surgical retractors are in place. No other significant f inding on this limited series.
[2021-03-04] MEDS: sodium chloride 0.9% 1,000 ML 30 ML IV (10:20)
--- NOTE | 2021-03-04 12:22 | P.ANESUD_ITS ---
Pre-Anesthetic Update Pre-Anesthetic Assessment: Date of Surgery/Procedure: 03/04/21 Preop [place] gn[place]: Spondylolisthesis L5-S1With lumbar radiculopathy Proposed Procedure: Operation Date: 03/04/21 11:30 Proposed Procedures p Posterior Lumbar Interbody Fusion L4/5 L5/S1 83396(e4) 09349 07962 M43.17(Not Applicable) - Ethan Aguilar, DO Any changes to Pre-Anesthetic Assessment?: No Last Intake: Intake Last Liquid Date 03/03/21 Last Liquid Time 18:00 Last Solid Date 03/03/21 Last Solid Time 18:00 Vitals: Pulse Rhythm 03/04/21 10:24 Pulse Strength 3+ Normal 03/04/21 10:24 Oxygen Delivery Me thod 03/04/21 10:24 Exam: Pre-Anes Outpt Exam: alert, oriented x 3, clear to auscultation bilaterally and regular rate & rhythm Cardiac Studies: No Data to Display
--- NOTE | 2021-03-04 13:00 | PM.HP ---
Providers/Chief Complaint Primary Care Provider: AMBROSIO Man Chief Complaint: Spondylolisthesis lumbar region History of Present Illness Rianna Gunn is a 65 year old female ack pain. She is here today to discuss her continuing low back pain. Pt has had PT in the past, she declines injections. Associated symptoms: Reports limited range of motion; Denies fever(s) or headache(s) Review of Systems Narrative: General ROS: negative for weight changes, fever ENT ROS: negative for nasal congestion, drainage or bleeding, sore throat, dysphagia or ear pain Eyes: PERRL Hematological and Lymphatic ROS: negative for swollen glands or abnormal bleeding Endocrine ROS: negative for polyuria/polydpsia or new changes in weight Respiratory ROS: negative for cough, shortness of breath, or wheezing Cardiovascular ROS: negative for chest pain or dyspnea on exertion Gastrointestinal ROS: negative for reflux, abdominal pain, change in bowel habits, or black or bloody stools Musculoskeletal ROS: negative for back pain, neck pain, or joint pain or swelling except for current problem Neurological ROS: negative for TIA or stoke symptoms Skin: no rashes Medications/Allergies Home Medications Medication Instructions Recorded Confirmed Last Taken Type albuterol sulfate 2 puff INHALATION QID PRN 08/23/19 03/04/21 1 Day Ago History ~03/03/21 amlodipine 10 mg PO DAILY #60 tab 08/23/19 03/04/21 03/04/21 06:00 Rx metoprolol tartrate 50 mg PO BID #90 tab 08/23/19 03/04/21 03/04/21 06:00 Rx nitroglycerin [Nitrostat] 0.4 mg SUBLINGUAL Q5M PRN 08/23/19 02/25/21 02/09/20 History ipratropium 0.5 mg-albuterol 3 mg 3 ml INHALATION Q6H PRN 12/26/19 03/04/21 2 Days Ago History (2.5 mg base)/3 mL nebulization ~03/02/21 soln ascorbic acid (vitamin C) 500 mg 1 gm PO DAILY tab 12/31/19 03/04/21 1 Day Ago History tablet ~03/03/21 aspirin 81 mg tablet,delayed 81 mg PO DAILY 12/31/19 03/04/21 2 Days Ago History release ~03/02/21 calcium carbonate 600 mg calcium 600 mg PO DAILY 12/31/19 03/04/21 1 Day Ago History (1,500 mg) tablet ~03/03/21 multivitamin 1 tab PO DAILY 12/31/19 03/04/21 1 Day Ago History ~03/03/21 rosuvastatin 20 mg sprinkle capsule 20 mg PO DAILY 12/31/19 03/04/21 1 Day Ago History ~03/03/21 omeprazole 40 mg PO DAILY 02/10/20 03/04/21 1 Day Ago History ~03/03/21 ropinirole 1 mg PO BEDTIME 02/10/20 03/04/21 1 Day Ago History ~03/03/21 diclofenac sodium 1 % topical gel 2 g TOPICAL QID PRN #100 g 04/28/20 03/04/21 Unknown Rx gabapentin 300 mg capsule 300 mg PO TID #90 cap 04/29/20 03/04/21 Unknown Rx oxybutynin chloride 5 mg 5 mg PO DAILY 90 Days #90 tab 01/20/21 03/04/21 1 Day Ago Rx tablet,extended release 24 hr ~03/03/21 Allergies Allergy/AdvReac Type Severity Reaction Status Date / Time No Known Allergies Allergy Verified 03/04/21 10:34 PFSH Acute PFSH: Medical History CAD (coronary artery disease) Carpal tunnel syndrome of right wrist Chronic steroid use COPD (chronic obstructive pulmonary disease) Elevated erythrocyte sedimentation rate GERD (gastroesophageal reflux disease) Hiatal hernia High risk medication use Hyperlipidemia Hypertension Immunization counseling Inflammatory arthritis Osteoarthritis Seronegative rheumatoid arthritis of both hands Stress incontinence Surgical History H/O heart artery stent H/O rotator cuff surgery History of ankle surgery History of appendectomy History of appendectomy History of hernia surgery History of tonsillectomy Family History Mother Breast cancer Diagnosed in her 60's Diabetes Hypertension Sister Colon cancer, Onset Age: 67 Family/Other Cervical cancer maternal first cousin Grandfather CAD (coronary artery disease) paternal Other FH: CABG (coronary artery bypass surgery) Denies family history of Ovarian cancer Hyperlipidemia Chronic kidney disease (CKD) Anesthesia complication Lung disease Uterine cancer Stroke Social History Smoking and tobacco status: current every day smoker cigarettes Packs smoked per day: 1 Years cigarettes smoked: 53 Alcohol intake: current Alcohol intake frequency: few times a month Alcohol type: beer History of recent travel: No Physical Exam Narrative: EXAM NARRATIVE: CONSTITUTIONAL: The patient is a normal appearing [] in no apparent distress. GENERAL: Patient in no acute distress. CARDIAC: Regular rate and rhythm. CHEST: Normal inspiratory effort, normal respiratory rate. ABDOMEN: Soft and nontender. SKIN: Clear, warm and intact. NEURO?PSYCH: The patient is alert and oriented to person, place and time. Sensorv /SILT Motor StrengthShoulder abduction C5 5/5Wrist extension C6 5/5Elbow extension C7 5/5Hand Supervisor Smoke Control C8 5/5Finger abduction T15/5 Radial/ Ulnar/ Median n intact LowerSensory (SILT)Motor StrengthHin flexion L2/3Ant/inner thigh 5/5Hip adduction L2/3 5/5Knee extension L4 Lat thigh, 5/5Toe dorsiflexion L5 5/5Ankle dorsiflexion L5/ S56Kvcaylz flexion S1 5/5 DTRBleeps 2+Triceps 2+Brachioradialis 2+Patellar 2+Achilles 2+ MUSCULOSKELETAL: [] UPPEREXTREMITIES: The patient had full active ROM in fingers, wrist, elbow, and shoulder. The patient demonstrated ability to fully flex/extend/abduct/adduct fingers, make ok sign, cross 2nd/3rd digits, extend 1st digit fully.. Radial pulse 2+, CR<2 seconds. LOWER EXTREMITIES: Pt has full, active ROM of toes, ankle, knee, and hip. Dorsalis pedis/posterior tibialis pulses 2+, CR<2 seconds. SPINE: Skin warm, dry, intact. Data : 02/25/21 11:50 A&P Assessment and plan (1) Spondylolisthesis at L5-S1 level: L4/5 and L5/S1 PLIF Status: Acute Attestations Medical Necessity Statement*: failed conservative tx Coding Level of Care Code Acute Dressage Instructor for [facility] Diagnoses Spondylolisthesis at L5-S1 level M43.17
[2021-03-04] MEDS: vancomycin 1,000 MG SDV 1000 MG XX (14:35)
[2021-03-04] MEDS: heparin, porcine 1,000 unit/mL INJ 10 mL 10000 UNIT IRRIGATION (14:35)
--- NOTE | 2021-03-04 17:17 | PM.OP ---
Operative Report Date of procedure: March 04, 2021 Pre-op Diagnosis: Spondylolisthesis L5-S1With lumbar radiculopathy; lumbar stenosis with neur Pre-op Diagnosis: neurogenic claudication Post-op diagnosis: same Procedure Done: 1. L4/5 Interbody fusion with posterolateral fusion 2. L5/S1 Interbody fusion with posterolateral fusion 3. Instrumentation L4-S1 4. Cage at L4/5 5. Cage at L5/S1 6. Laminectomy L4 7. Laminectomy L5 8. use of autograft from same incision 9. allograft 10. Bone marrow aspirate from left iliac crest 11. Use of computer navigation/sterotactic of lumbar spine Surgeon: Ethan Aguilar Anesthesia: General Estimated blood loss (mL): 200 Condition: stable Disposition: PACU Procedure: 1. L4/5 Interbody fusion with posterolateral fusion 2. L5/S1 Interbody fusion with posterolateral fusion 3. Instrumentation L4-S1 4. Cage at L4/5 5. Cage at L5/S1 6. Laminectomy L4 7. Laminectomy L5 8. use of autograft from same incision 9. allograft 10. Bone marrow aspirate from left iliac crest 11. Use of computer navigation/sterotactic of lumbar spine Patient is brought to the operative suite. After undergoing anesthesia, the patient had neuro monitoring attached. Patient was then placed in the prone position on the Wyatt table. All areas of impingement were well-padded. Patient was then prepped and draped in the normal sterile fashion. Skin incision was then made over the L4-S1. Subperiosteal dissection was made out to the transverse processes of L4 and L5 and the Sacral ala bilaterally. Once the exposure was complete attention was then brought to getting the bone marrow aspirate. The regenicel bone marrow aspirate kit was used to aspirate bone marrow aspirate. This was done by using the sharp probe to open up the bonein the left illiac crest. Aspiration was performed and then the blunt probe was then used to dissect down to through the bone tunnel. An aspirating well drawn back a millimeter approximately 20 cc of bone marrow aspirate was used. And mixed with the allograft and autograft bone that will be used. The neck step was placing the fiducial into the left iliac crest. This was done by placing 2 pins into the iliac crest and then attaching the computer navigation fiducial. This information was linked into the computer. And then the C arm was brought in and spun around the patient and then the information from this was linked into the computer and which allowed for information for placing the pedicle screws. The technique for placing the pedicle screws was to use a drill followed by the gearshift probe linked to the computer navigation. Followed by the ball probe to feel the superior inferior medial lateral mcintosh of the pedicles linked to computer navigation. Then placement of the screws. Was done at each pedicle. Screws were placed at L4 bilaterally and L5 bilaterally and S1 pedicles bilateral. Next attention was brought to performing the laminectomy ofL5. This was done using the high-speed bur Kerrisons and curettes. Once the lamina was removed and then attention was brought to performing a partial facetectomy on the contralateral side. This was done again using the high-speed bur curettes and Kerrisons. The ligamentum flavum was taken down bilaterally from L5 to S1. Attention was then brought to the facet on the ipsilateral side. The facet was taken down. The S1 nerve was decompressed as it passed around the S1 pedicle. The laminectomy was done for purposes of decompressing the nerve as well as placement of the cage. The L5 nerve was identified as it traversed through the L5/S1 foramen. The thecal sac was identified and retracted. The L5/S1 disc base was identified. Using a knife the disc base was opened. And then sequential erasto were placed. The first shaver was a 6 and the last shaver was a 8. Using a pituitary and down going curette the endplates were scraped and disc material was removed from the space. Once adequate decompression of the disc base was felt to be had. Osteoamp sponge was packed into the anterior aspect of the disc base. Then a size 8 cage from [employer] was placed after packing osteoamp into the cage. While placing the cage the thecal sac and S1 nerve was protected. C arm was used to ensure that the cages placed in the appropriate position. Next attention was brought to performing the laminectomy ofL4. This was done using the high-speed bur Kerrisons and curettes. Once the lamina was removed and then attention was brought to performing a partial facetectomy on the contralateral side. This was done again using the high-speed bur curettes and Kerrisons. The ligamentum flavum was taken down bilaterally from L4 to L5. Attention was then brought to the facet on the ipsilateral side. The facet was taken down. The L5 nerve was decompressed as it passed around the L5 pedicle. The laminectomy was done for purposes of decompressing the nerve as well as placement of the cage. The L4 nerve was identified as it traversed through the L4/5 foramen. The thecal sac was identified and retracted. The L4/5 disc base was identified. Using a knife the disc base was opened. And then sequential erasto were placed. The first shaver was a 6 and the last shaver was a 10. Using a pituitary and down going curette the endplates were scraped and disc material was removed from the space. Once adequate decompression of the disc base was felt to be had. Osteoamp sponge was packed into the anterior aspect of the disc base. Then a size 10 cage from [employer] was placed after packing osteoamp into the cage. While placing the cage the thecal sac and L5 nerve was protected. C arm was used to ensure that the cages placed in the appropriate position. Attention was then brought to attaching the rods to the screws placed in the L4, L5 and S1 bilaterally. Caps were torqued into position. Locking the construct in place. Wound was copiously irrigated and then attention was brought to decorticating the facets and transverse processes laterally. Bone that was taken down from the lamina was used along with osteoamp fibers and sponges were packed into the lateral gutters along the facet joints. This was done bilaterally. Wound was then closed in a layered fashion starting with the thoracolumbar fascia. 0-vicryl was used the sub cutaneous tissue was closed with 2-0 vicryl and skin with 4-0 monocryl. Glue was then used to seal the skin and a steril dressing was applied. Patient was then placed in the supine position. The endotracheal tube was removed and patient was transferred to the PACU in stable condition.
[2021-03-04] MEDS: lactated ringers 1,000 ML 90 ML IV (18:37)
[2021-03-04] MEDS: lanolin oint 7 gm 1 APPLIC TOPICAL (18:44)
[2021-03-04] MEDS: ketorolac 30 mg/mL INJ IVP (18:44)
[2021-03-04] MEDS: metoprolol tartrate 50 mg Tablet PO (21:10)
[2021-03-04] MEDS: docusate sodium 100 mg Capsule PO (21:10)
[2021-03-04] MEDS: gabapentin 300 mg Capsule PO (21:10)
[2021-03-04] MEDS: ropinirole 1 mg Tablet PO (21:10)
[2021-03-04] MEDS: ondansetron 2 mg/ML SDV 2 mL 4 MG IVP (21:11)
[2021-03-04] MEDS: morphine 4 mg/mL SDV 1 mL 2 MG IVP (21:11)
[2021-03-05] VITALS: BP 122/70; PULSE 65; RESP 18; TEMP 36.3; O2SAT 93
[2021-03-05] MEDS: morphine 4 mg/mL SDV 1 mL 2 MG IVP (01:32)
[2021-03-05] MEDS: ketorolac 30 mg/mL INJ IVP ×2 (01:33→10:17)
[2021-03-05] MEDS: ondansetron 2 mg/ML SDV 2 mL 4 MG IVP (01:33)
[2021-03-05 04:53] VITALS: BP 104/59; PULSE 68; RESP 18; TEMP 36.7; O2SAT 93
[2021-03-05] MEDS: lactated ringers 1,000 ML 90 ML IV (05:49)
[2021-03-05] MEDS: HYDROcodone-acetaminophen 5-325 mg Tablet PO ×2 (05:50→15:30)
[2021-03-05] MEDS: enoxaparin 40 mg/0.4 mL Syringe SUBCUT (05:54)
--- NOTE | 2021-03-05 07:59 | P.DS_ITS ---
Discharge Providers Date of Admission: 03/04/21 17:33 Date of Discharge: March 05, 2021 Attending Provider at Admission: Jorge Christian MD Attending Provider at Discharge: Ethan Aguilar DO Primary Care Provider: AMBROSIO Man Diagnoses at Discharge Discharge Diagnosis (1) Spondylolisthesis at L5-S1 level: Status: Acute Reason for Visit Reason for Visit: Spondylolisthesis lumbar region Hospital Course Hospital Course Patient mated on 03/04/2021. She had a two-level posterior lumbar interbody fusion. She is doing well and she will be discharged on 03/05/2021. Her stay was uneventful. Physical Exam Urinary Catheter Management^: F: Cath Placed During This Visit: yes, but has since been removed by the nurse Urinary Catheter Date of Insertion: 03/04/21 Urinary Catheter Time of Insertion: 14:00 Date Urinary Catheter Removed: 03/04/21 Time Urinary Catheter Discontinued: 17:24 Discharge Data Data Completed and Pending: Pending at discharge Category Date Time Status C-arm Fluoroscopy [id number] Routine Exams 03/04/21 10:10 Stop Req Vitals: Last Vital Signs Temp 98.0 F 03/05/21 04:53 Pulse 68 03/05/21 04:53 Resp 18 03/05/21 04:53 BP 104/59 03/05/21 04:53 Pulse Ox 93 03/05/21 04:53 Discharge Plan Discharge Patient Disposition: Home Condition: Stable Prescriptions: New hydrocodone-acetaminophen 5-325 mg tablet 1 - 2 tab PO .Q4-6H Qty: 40 RF: 0 Continued ipratropium-albuterol 0.5 mg-3 mg(2.5 mg base)/3 mL solution for nebulization 3 ml INHALATION Q6H PRN (Reason: Shortness Of Breath) RF: 0 diclofenac sodium 1 % gel 2 g TOPICAL QID PRN (Reason: Pain) Qty: 100 RF: 2 gabapentin 300 mg capsule 300 mg PO TID Qty: 90 RF: 0 rosuvastatin 20 mg capsule, sprinkle 20 mg PO DAILY RF: 0 aspirin [Adult Low Dose Aspirin] 81 mg tablet,delayed release (DR/EC) 81 mg PO DAILY RF: 0 ascorbic acid (vitamin C) 500 mg tablet 1 gm PO DAILY RF: 0 multivitamin Tablet 1 tab PO DAILY RF: 0 calcium carbonate [Calcium 600] 600 mg calcium (1,500 mg) tablet 600 mg PO DAILY RF: 0 oxybutynin chloride 5 mg tablet extended release 24hr 5 mg PO DAILY 90 Days Qty: 90 RF: 0 nitroglycerin [Nitrostat] 0.4 mg Tablet, Sublingual 0.4 mg SUBLINGUAL Q5M PRN (Reason: Chest Pain) RF: 0 albuterol sulfate 90 mcg/actuation Hfa Aerosol Inhaler 2 puff INHALATION QID PRN (Reason: Shortness Of Breath) RF: 0 amlodipine 10 mg tablet 10 mg PO DAILY Qty: 60 RF: 0 metoprolol tartrate 50 mg tablet 50 mg PO BID Qty: 90 RF: 0 ropinirole 1 mg tablet 1 mg PO BEDTIME RF: 0 omeprazole 40 mg Capsule,Delayed Release(Dr/Ec) 40 mg PO DAILY RF: 0 Discharge Orders: Discharge Order (Routine); Ordered 03/05/21 Ordered By: Ethan Aguilar Discharge Diet: Advance as tolerated Discharge Activity: Limit activity as instructed Patient Instructions: Opioid Safety Activity Restrictions/Additional Instructions: Thank you for [facility] for your care! The following is a list of instructions, from your provider, to follow upon your discharge to ensure you have the optimal recovery from your recent injury orsurgery. Follow-up care is a yuan part of your treatment and safety. Be sure to make and go to all appointments, and call your doctor if you are having problems. If you do not already have a follow-up appointment made, call Dr. Aguilar office in the next 1-3 days to make follow up appointment for 1 weeks at [phone]. It is also a good idea to know your test results and keep a list of the medicines you take. Medications will be prescribed for you at your provider's discretion. These medications are to be used as instructed; if they are taken more often that prescribed they will not be refilled early and in most cases will not be refilled at all. > When a refill is needed,you should contact rani tavarez 2-3 business days before your prescription runs out. Medications will NOT be refilled by laborer ammunition assembly providers after hours! > Many pain medications contain Tylenol (Acetaminophen). Do not consume more than 4,000 mg of Tylenol per day in total with any combination ofmedi cations. > Pain medications can cause constipation. Please use an over the counter stool softener as directed, while taking pain medications. Consulty our local pharmacist with questions or recommendations on stool softeners. If constipation persists, contact our office or your primary care provider. > While under our care,you are not to receive pain medications or other controlled substances from any other provider unless our office is notified and approves. Any attempts to do so will result in refusal to prescribe any further pain medications and possible dismissal from our practice. ? Keep dressing on until seen in 1 week ? Walking is essential for the healing process after surgery. We would like you to slowly advance your walking. This should be done on relatively flat clear ground (inside or out) or can be done on a treadmill. Remember this goal does not have to happen all at once, slowly increase your distance and duration. This can be broken into more more than one walk per day as tolerated. Patients who walk as directed after surgery rarely require Physical Therapy. In the unlikely event this issue arises your provider will direct hospital staff to make the appropriate arrangements. ? No lifting over 5 pounds {a gallon of milk) or bending/twisting until further notice. Each of these activities places an unnecessary amount of stress onto the body and can impede the delicate healing process. > Instead of bending at the waist, keep your back straight and bend at the knees. > Instead of twisting your torso, keep your back straight and turn your entire body with your feet. ? You may sleep in any position which makes you comfortable. Many patients find comfort sleeping in a reclining chair. It is not abnormal to have difficulty sleeping for the first several weeks following your surgery. We recommend trying Benadry! or Tylenol PM as directed to help with your sleeping difficulties. Both medications are over the counter and available withoutprescription. ? NO SMOKING!!! Smoking dramatically increases the probability of developing postoperative wound infections. ? Common complaints after lumbar and/or thoracic spine surgery include, but are not limited to: numbness and/or tingling in the legs, pain around the incision and surrounding tissues, muscle spasms, or stiffness of the middle to low back. Contact our office if these symptoms persist or if an acute change occurs. ? No driving for the first 3-5days, and not while taking narcotics [] u ntil seen at your follow-up appointment and cleared. There are no restrictions for riding on short trips, however if you take a longer trip, arrangements should be made to make regular stops to get out of the vehicle and stretch . ? Swelling is an unfortunate event that will take place with any surgery and is the primary source of your postoperative discomfort. While walking and regular approved activities helps control inflammation, there are additional steps you can take to minimizeswelling. > Place ice over the surgical site and surrounding tissue for twenty minutes, followed by applying a low/medium heat (heating pad) for an additional twenty minutes every 1-2 hours as needed for painrelief. > You may use of over the counter anti-inflammatory medications (Ibuprofen, Motrin, Aleve, Advil, etc) as directed on the package label. These types of medicines wm significantly reduce the amount of discomfort you experience after surgery from swelling. It should be noted that if you have and allergy to any of these medications, or a history of ulcers or kidney disease you should consult you primary care provider prior to starting these medications. Discharge Attestations Time Spent in Discharge Care*: less than 30 min Quality Metrics Clinical Quality Measures During this hospital stay, did patient experience: None Coding Level of Care Code Acute g CALEB STEVE note Diagnoses Spondylolisthesis at L5-S1 level M43.17
[2021-03-05] MEDS: amlodipine 10 mg Tablet PO (10:16)
[2021-03-05] MEDS: metoprolol tartrate 50 mg Tablet PO (10:16)
[2021-03-05] MEDS: multivitamin therapeutic Tablet 1 TAB PO (10:16)
[2021-03-05] MEDS: docusate sodium 100 mg Capsule PO (10:16)
[2021-03-05] MEDS: oxybutynin chloride XL 5 MG TABLET PO (10:16)
[2021-03-05] MEDS: atorvastatin 40 mg Tablet 80 MG PO (10:16)
[2021-03-05] MEDS: ascorbic acid 500 mg Tablet 1000 MG PO (10:16)
[2021-03-05] MEDS: pantoprazole DR 40 mg Tablet PO (10:17)
[2021-03-05] MEDS: aspirin 81 mg EC Tablet PO (10:17)
[2021-03-05 12:00] VITALS: BP 143/86; PULSE 72; RESP 18; TEMP 36.8; O2SAT 93
--- NOTE | 2021-03-05 14:08 | PC.CHAP ---
Pastoral Care Encounter/Spiritual Assessment Type of Contact [] Declined machine maintenance mechanic visit [] Patient/Family/Request visit [] Outpatient visit [] Follow-up visit [] Physician referral [] Code/Alert [x] Routine visit [] Staff referral [] Actively dying [] Patient sleeping [] Family support [] [] Out of room [] Palliative care [] [x] Receiving care in room [] Pre-surgical visit [] Trauma [] Long length of stay [] ICU visit [] Other: Relational/Emotional Strength [x] Patient feels connected with others/family/visitors/staff [] Distress [] Loneliness/isolation [] Abandonment Spirituality of Patient [x] Person of Camilla [] Attends Yazdanism of their Camilla [x] Believes in Prayer [] Reads Bible or Hoahaoism materials [] There are Spiritual issues to be addressed 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 [x] Prayer [x] Active listening [x] Non-anxious presence [x] Spiritual/emotional support [] Crisis/trauma care [x] Spiritual counseling [] Bereavement support [] Provided bereavement packet [] Provided Bible/devotional materials [] Provided toy/stuffed animal, coloring book to patient or family member [] Provided Communion [] Anointing/[place] [] Salvation [x] Completed spiritual assessment [] Other: Impact on Illness or Injury [] Angry [] Fearful [x] Anxious [] Often cries [] Exhaustion [] Unable to work [] Unable to attend mormon [] Unable to walk/stand [] Unable to read [] Unable to drive [] Unable to eat/drink [] Unable to sleep [] Unable to be with family [] Patient intubated [] Other: Summary had surgery fussiing two clarisa bes in some pain recovery at has a good attitude going home soon Time spent with patient 10 mins
--- NOTE | 2021-03-05 14:11 | PC.CHAP ---
Pastoral Care Encounter/Spiritual Assessment Type of Contact [] Declined conference services coordinator visit [] Patient/Family/Request visit [] Outpatient visit [] Follow-up visit [] Physician referral [] Code/Alert [x] Routine visit [] Staff referral [] Actively dying [] Patient sleeping [] Family support [] [] Out of room [] Palliative care [] [x] Receiving care in room [] Pre-surgical visit [] Trauma [] Long length of stay [] ICU visit [x] Other: covid Relational/Emotional Strength [] Patient feels connected with others/family/visitors/staff [] Distress [] Loneliness/isolation [] Abandonment Spirituality of Patient [] Person of Camilla [] Attends Confucianism of their Camilla [] Believes in Prayer [] Reads Bible or Church materials [] There are Spiritual issues to be addressed Retirement Plan Counselor Interventions [] Prayer [] Active listening [] Non-anxious presence [] Spiritual/emotional support [] Crisis/trauma care [] Spiritual counseling [] Bereavement support [] Provided bereavement packet [] Provided Bible/devotional materials [] Provided toy/stuffed animal, coloring book to patient or family member [] Provided Communion [] Anointing/[place] [] Salvation [] Completed spiritual assessment [] Other: Impact on Illness or Injury [] Angry [] Fearful [] Anxious [] Often cries [] Exhaustion [] Unable to work [] Unable to attend buddhism [] Unable to walk/stand [] Unable to read [] Unable to drive [] Unable to eat/drink [] Unable to sleep [] Unable to be with family [] Patient intubated [] Other: Summary covid Time spent with patient 5 mins
--- NOTE | 2021-03-05 15:31 | PC.NURSE ---
PT HAS DONE WELL FOR ME TODAY. PT IS UP AND AMBULATING AND IS DOING WELL WITH ME AND WELL WITH THE PHYSICAL THERAPIST. DRAIN WAS PULLED BY THIS NURSE PER DR LEAHY THIS MORNING. PT TOLERATED THAT WELL. NO NEW BLEEDING NOTED SINCE THE DRAIN HAS BEEN PULLED. PT DID HAVE TO BE STRAIGHT CATHED THIS MORNING DUE TO A BLADDER SCAN SHOWING OVER 600 ML OF URINE. AN ORDER WAS OBTAINED FROM DR LEAHY TO BLADDER SCAN AND STRAIGHT CATH PT NEEDED. PT TOLERATED THIS PROCEDURE WELL. PT HAS SINCE VOIDED IN BSC FOR ME. PT WILL DISCHARGE TODAY. IV REMOVED. PT TOLERATED WELL. CATHETER TIP INTACT. DISCHARGE PAPERWORK GONE OVER WITH PT. ALL QUESTIONS ANSWERED. WE ARE WAITING FOR PT'S RIDE. WILL CONTINUE TO MONITOR PT UNTIL RIDE GETS HERE.
[2021-03-05 16:08] VITALS: BP 143/86; PULSE 72; RESP 18; TEMP 36.8; O2SAT 93
== END 2021-03-05 16:08 | disposition home or self-care (01) | DRG 455 ==
LOC: MEDSURG 17:34
PROVIDERS: Anesthesiology; Admitting Provider Obstetrics & Gynecology; PCP Nurse Practitioner Family; Visit Provider Orthopaedic Surgery
PROC: 8E0WXBZ Computer Assisted Procedure of Trunk Region (ICD-10-PCS; CPT 22612; principal; 2021-03-04 11:20)
DX: M43.17 Spondylolisthesis, lumbosacral region (principal); M54.16 Radiculopathy, lumbar region; M48.062 Spinal stenosis, lumbar region with neurogenic claudication; K21.9 Gastro-esophageal reflux disease without esophagitis; J44.9 Chronic obstructive pulmonary disease, unspecified; M06.042 Rheumatoid arthritis without rheumatoid factor, left hand; M06.041 Rheumatoid arthritis without rheumatoid factor, right hand; I25.10 Atherosclerotic heart disease of native coronary artery without angina pectoris; E78.5 Hyperlipidemia, unspecified; I10 Essential (primary) hypertension; F17.210 Nicotine dependence, cigarettes, uncomplicated; Z79.52 Long term (current) use of systemic steroids; Z79.899 Other long term (current) drug therapy; Z95.5 Presence of coronary angioplasty implant and graft; Z79.82 Long term (current) use of aspirin
CPT/HCPCS: 36415; 51702; 51798; 72020; 76000; 85025; 96372; 97116; 97161; 97530; C1713; C9359; J0690; J1100; J1170; J1650; J1885; J2270; J2405; J2704; J3010; J3370; J3490; J7030

== ENCOUNTER → 2021-04-16 08:34 | Outpatient (BNVA) | payer MEDICARE, MEDICAID, SELFPAY | PROVIDERS: PCP Nurse Practitioner Family; Visit Provider Orthopaedic Surgery | DX: Z48.89 Encounter for other specified surgical aftercare (principal); M43.10 Spondylolisthesis, site unspecified | CPT/HCPCS: 72100 ==

== ENCOUNTER → 2021-05-28 08:21 | Outpatient (BNVA) | payer MEDICARE, MEDICAID, SELFPAY | PROVIDERS: PCP Nurse Practitioner Family; Visit Provider Orthopaedic Surgery | DX: Z48.89 Encounter for other specified surgical aftercare; Z98.890 Other specified postprocedural states | CPT/HCPCS: 72100 ==

== ENCOUNTER → 2021-07-07 10:41 | Outpatient (BNVA) | payer MEDICARE, MEDICAID, SELFPAY | PROVIDERS: PCP Nurse Practitioner Family; Visit Provider Internal Medicine Cardiovascular Disease | DX: I25.119 Atherosclerotic heart disease of native coronary artery with unspecified angina pectoris (principal); Z79.82 Long term (current) use of aspirin; F17.210 Nicotine dependence, cigarettes, uncomplicated; I10 Essential (primary) hypertension; E78.5 Hyperlipidemia, unspecified; J44.9 Chronic obstructive pulmonary disease, unspecified; K44.9 Diaphragmatic hernia without obstruction or gangrene; K21.9 Gastro-esophageal reflux disease without esophagitis; M06.041 Rheumatoid arthritis without rheumatoid factor, right hand; M06.042 Rheumatoid arthritis without rheumatoid factor, left hand; Z95.5 Presence of coronary angioplasty implant and graft | CPT/HCPCS: 99214 ==

== ENCOUNTER → 2021-09-01 08:45 | Outpatient (BNVA) | payer MEDICARE, MEDICAID, SELFPAY | PROVIDERS: PCP Nurse Practitioner Family; Visit Provider Orthopaedic Surgery | DX: Z47.89 Encounter for other orthopedic aftercare (principal); Z98.890 Other specified postprocedural states; Z98.1 Arthrodesis status | CPT/HCPCS: 72110; 99214 ==

== ENCOUNTER 2021-09-02 06:09 | Emergency (ER) | payer MEDICARE, MEDICAID, SELFPAY ==
[2021-09-02 06:12] VITALS: BP 123/74; PULSE 80; RESP 22; TEMP 37; O2SAT 99; BMI 29.2
--- NOTE | 2021-09-02 06:24 | XRR_ITS ---
PROCEDURE INFORMATION: Exam: XR Chest Exam date and time: 09/02/2021 6:28 AM Age: 66 years old Clinical indication: Angina and dyspnea; Patient HX: SOB chest pain x 1 week; Additional info: Dyspnea/cough TECHNIQUE: Imaging protocol: XR of the chest. Views: 1 view. COMPARISON: CR XR chest 2V* [id number] 04/29/2021 11:13 AM FINDINGS: Lungs: No focal airspace disease. Pleural spaces: Unremarkable. No pleural effusion. No pneumothorax. Heart/Mediastinum: Cardiomediastinal silhouette is within normal limits. Bones/joints: Unremarkable. XR/XR chest 1V portable [id number] IMPRESSION: No acute cardiopulmonary abnormality.
--- NOTE | 2021-09-02 06:24 | ECG_ITS ---
[facility] Test Date: 2021-09-02 Pat Name: Rianna Gunn Department: Room: Gender: Female Garment Inspector: : 1955 Requested By: Jean Moser Order Number: [id number] Katelyn MD: Angela Mcnair M.D. Measurements Intervals [place] Rate: 81 P: 57 MI: 152 QRS: 31 QRSD: 90 T: 42 QT: 388 QTc: 452 Interpretive Statements SINUS RHYTHM POSSIBLE LEFT ATRIAL ENLARGEMENT [-0.1mV P-WAVE IN V1/V2] POSSIBLE RIGHT VENTRICULAR CONDUCTION DELAY [RSR (QR) IN V1/V2] Compared to ECG 02/10/2020 13:54:26 No significant changes Electronically Signed On 09-02-2021 20:22:29 CDT by Angela Mcnair M.D. [email or web address]
--- NOTE | 2021-09-02 06:25 | W.ED.SOB ---
HPI - SOB/Dyspnea General: Chief Complaint: Shortness of Breath/Dyspnea Stated Complaint: SOB Time Seen by Provider: 09/02/21 06:10 Source: patient Mode of arrival: ambulatory Limitations: no limitations History of Present Illness: HPI Narrative: 66-year-old female presents emergency room complaining of shortness of breath cough and congestion for the last several days she been using her nebulizer once a day she does get relief from but has not increased to regular use of it. She denies any chest pain. No fever sweats or chills cough mildly productive. Patient does still smoke but because the degree of her cough the last week she is cut down significantly. MD elicited complaint: shortness of breath Pertinent past history: COPD Onset (ago): day(s) Timing: constant Severity: moderate Exacerbating factors: exertion and coughing Relieving factors: bronchodilators Known history of: COPD Associated symptoms: Reports chest congestion and cough; Deny abdominal pain, chest pain, diaphoresis, dizziness, extremity pain, fever(s), hemoptysis, lightheadedness, myalgias, nausea, orthopnea, palpitations, paresthesias, polydipsia, polyuria, rash, sense of impending doom, syncope or vomiting Review of Systems Const: Denies: fever(s), chills or diaphoresis ENMT: Denies: throat pain, ear or mastoid pain, nasal discharge or nasal congestion Card: Denies: chest pain, palpitations, lightheadedness, syncope or orthopnea Resp: Reports: dyspnea, productive cough, wheezing and chest congestion; Denies: hemoptysis GI: Denies: abdominal pain, nausea or vomiting : Denies: flank pain, difficulty voiding, dysuria, urinary frequency or urinary urgency Musc: Denies: extremity pain Skin/Breast: Denies: rash or pruritus Neuro: Denies: dizziness Endo: Denies: polyuria or polydipsia PFSH ED PFSH: Medical History CAD (coronary artery disease) Carpal tunnel syndrome of right wrist Chronic steroid use COPD (chronic obstructive pulmonary disease) Elevated erythrocyte sedimentation rate GERD (gastroesophageal reflux disease) Hiatal hernia High risk medication use Hyperlipidemia Hypertension Immunization counseling Inflammatory arthritis Osteoarthritis Seronegative rheumatoid arthritis of both hands Stress incontinence Surgical History H/O heart artery stent H/O rotator cuff surgery History of ankle surgery History of appendectomy History of appendectomy History of hernia surgery History of tonsillectomy Family History Mother Breast cancer Diagnosed in her 60's Diabetes Hypertension Sister Colon cancer, Onset Age: 67 Family/Other Cervical cancer maternal first cousin Grandfather CAD (coronary artery disease) paternal Other FH: CABG (coronary artery bypass surgery) Denies family history of Ovarian cancer Hyperlipidemia Chronic kidney disease (CKD) Anesthesia complication Lung disease Uterine cancer Stroke Social History Smoking and tobacco status: current every day smoker cigarettes Packs smoked per day: 1 Years cigarettes smoked: 53 Alcohol intake: current Alcohol intake frequency: few times a month Alcohol type: beer History of recent travel: No Physical Exam Const: COMMON NORMALS: no acute distress GENERAL APPEARANCE: cooperative and comfortable ORIENTATION/CONSCIOUSNESS: Yes awake, Yes oriented to person, Yes oriented to place and Yes oriented to time HENMT: COMMON NORMALS: normocephalic, atraumatic and hearing grossly normal bilaterally HEAD & SCALP: normocephalic and atraumatic Neck/C-Spine: COMMON NORMALS: no JVD Resp: AUSCULTATION: rhonchi and wheezes Cardio: COMMON NORMALS: no JVD, regular rate, regular rhythm and No murmurs present (Cardio) RATE: regular rate RHYTHM: regular rhythm GI: COMMON NORMALS: Soft to palpation and No hepatosplenomegaly present AUSCULTATION: Yes normoactive bowel sounds PALPATION: Yes Soft to palpation, No Tenderness to palpation present (GI), No Guarding due to palpation present (GI) and Yes No hepatosplenomegaly present Extremity: COMMON NORMALS: normal to inspection, capillary refill normal, no clubbing, cyanosis or edema, no calf tenderness and no pedal edema Neuro: SENSORIUM/ORIENTATION: Yes oriented to person, Yes oriented to place and Yes oriented to time Skin: COMMON NORMALS: no rashes or lesions noted GENERAL SKIN EXAM: no rashes or lesions noted Course Vital Signs: Vital signs: Vital Signs Temperature 98.6 F 09/02/21 06:12 Pulse Rate 84 09/02/21 07:53 Respiratory Rate 16 09/02/21 07:16 Blood Pressure 126/63 09/02/21 07:53 Pulse Oximetry 99 09/02/21 07:53 MDM - SOB/Dyspnea Medical Decision Making Acute exacerbation COPD. Patient much improved after nebulizer treatment she has nebulizer at home but only been using it once a day. Encourage her to use it every 2-4 hours as needed during the day we will start her on prednisone taper short course of doxycycline and follow-up with her primary care doctor if not improving. Medical Records I reviewed the patient's medical records. Lab Data I reviewed the patient's lab results. : 09/02/21 06:20 09/02/21 06:20 Labs/Radiology: Radiology Impressions Chest X-Ray 09/02/21 06:24 IMPRESSION: No acute cardiopulmonary abnormality. Laboratory Results WBC 9.5 10^3/uL (4.0-10.0) 09/02/21 06:20 RBC 3.87 10^6/uL (4.1-5.3) L 09/02/21 06:20 Hgb 11.2 g/dL (11.5-15.3) L 09/02/21 06:20 Hct 34.9 % (37.0-47.0) L 09/02/21 06:20 MCV 90.2 fl (81-99) 09/02/21 06:20 MCH 28.9 pg (28.0-34.0) 09/02/21 06:20 MCHC 32.1 g/dL (30.0-36.0) 09/02/21 06:20 RDW 14.0 % (12.1-15.1) 09/02/21 06:20 Plt Count 259 10^3/cmm (130-400) 09/02/21 06:20 MPV 11.5 fL (7.4-10.4) H 09/02/21 06:20 Neut % (Auto) 72.0 % 09/02/21 06:20 Lymph % (Auto) 13.5 % 09/02/21 06:20 [place] % (Auto) 9.2 % 09/02/21 06:20 Eos % (Auto) 4.4 % 09/02/21 06:20 Baso % (Auto) 0.6 % 09/02/21 06:20 Neut # (Auto) 6.83 10^3/uL (1.8-7.7) 09/02/21 06:20 Lymph # (Auto) 1.3 10^3/uL (0.8-4.8) 09/02/21 06:20 [place] # (Auto) 0.9 10^3/uL (0.2-0.9) 09/02/21 06:20 Eos # (Auto) 0.4 10^3/uL (0.0-0.8) 09/02/21 06:20 Baso # (Auto) 0.1 10^3/uL (0.0-0.1) 09/02/21 06:20 Nucleated RBC % (auto) 0 % 09/02/21 06:20 Nucleated RBCs # 0.0 /100WBC 09/02/21 06:20 Sodium 139 mmol/L (136-145) 09/02/21 06:20 Potassium 4.5 mmol/L (3.5-5.1) 09/02/21 06:20 Chloride 103 mmol/L (98-107) 09/02/21 06:20 Carbon Dioxide 22 mmol/L (22-29) 09/02/21 06:20 Anion Gap 18.5 (5-19) 09/02/21 06:20 BUN 10 mg/dL (8-23) 09/02/21 06:20 Creatinine 0.9 mg/dL (0.5-0.9) 09/02/21 06:20 GFR Calculation 62.5 mL/min (90-130) L 09/02/21 06:20 Glucose 96 mg/dL (65-115) 09/02/21 06:20 Calculated Osmolality 287 mOsm/kg (285-295) 09/02/21 06:20 Calcium 8.7 mg/dL (8.5-10.5) 09/02/21 06:20 Total Bilirubin 0.4 mg/dL (0.15-1.2) 09/02/21 06:20 AST 13 U/L (0-32) 09/02/21 06:20 ALT 9 U/L (0-33) 09/02/21 06:20 Alkaline Phosphatase 69 IU/L (35-105) 09/02/21 06:20 Troponin T Baseline 10 ng/L (0-10) 09/02/21 06:20 Total Protein 7.0 g/dL (6.6-8.7) 09/02/21 06:20 Albumin 4.6 g/dL (3.5-5.2) 09/02/21 06:20 Globulin 2.4 g/dL (1.3-4.6) 09/02/21 06:20 Discharge Plan Discharge Patient Disposition: Home Clinical Impression: Acute exacerbation of chronic obstructive airways disease Condition: Stable Prescriptions: New doxycycline hyclate 100 mg capsule 100 mg PO BID 10 Days Qty: 20 0RF prednisone 20 mg tablet 20 mg PO TID Qty: 15 0RF Rx Instructions: 1 p.o. 3 times daily x3 days, 1 p.o. twice daily x2 days, 1 p.o. daily x2 days No Action ipratropium-albuterol 0.5 mg-3 mg(2.5 mg base)/3 mL solution for nebulization 3 ml INHALATION Q6H PRN (Reason: Shortness Of Breath) 0RF diclofenac sodium 1 % gel 2 g TOPICAL QID PRN (Reason: Pain) Qty: 100 2RF Rx Instructions: apply to affected area as needed nitroglycerin [Nitrostat] 0.4 mg tablet, sublingual 0.4 mg SUBLINGUAL Q5M PRN (Reason: Chest Pain) Qty: 25 3RF alendronate 70 mg tablet 70 mg PO .Qweekly 0RF montelukast 10 mg tablet 10 mg PO DAILY 0RF magnesium oxide 500 mg capsule 500 mg PO DAILY 0RF rosuvastatin 20 mg capsule, sprinkle 20 mg PO DAILY 0RF aspirin [Adult Low Dose Aspirin] 81 mg tablet,delayed release (DR/EC) 81 mg PO DAILY 0RF ascorbic acid (vitamin C) 500 mg tablet 1 gm PO DAILY 0RF multivitamin Tablet 1 tab PO DAILY 0RF calcium carbonate [Calcium 600] 600 mg calcium (1,500 mg) tablet 600 mg PO DAILY 0RF oxybutynin chloride 5 mg tablet extended release 24hr 5 mg PO DAILY 30 Days Qty: 30 0RF Rx Instructions: needs to keep f/u appt. for additional refills hydrocodone-acetaminophen 5-325 mg tablet 1 - 2 tab PO .Q4-6H PRN (Reason: pain) 7 Days Qty: 40 0RF albuterol sulfate 90 mcg/actuation Hfa Aerosol Inhaler 2 puff INHALATION QID PRN (Reason: Shortness Of Breath) 0RF amlodipine 10 mg tablet 10 mg PO DAILY Qty: 60 0RF metoprolol tartrate 50 mg tablet 50 mg PO BID Qty: 90 0RF omeprazole 40 mg Capsule,Delayed Release(Dr/Ec) 40 mg PO DAILY 0RF Rx Instructions: pt states she has been out of this medication for 2 days ropinirole 1 mg tablet 4 mg PO BEDTIME 0RF Discharge Orders: Discharge ED (Routine); Ordered 09/02/21 Ordered By: Jean Dunn Referrals: Kortney Aguirre FNP [Primary Care Provider] - Discharge Diet: Usual diet Discharge Activity: Increase activity as tolerated Patient Instructions: Opioid Safety Activity Restrictions/Additional Instructions: Follow up with your doctor within the next week. Coding Level of Care Code ED Aerodynamic Consultant for Ludmila Danielle
[2021-09-02 07:01] LABS: Basophils # 0.1 10^3/uL (0.0-0.1); Basophils % 0.6 %; Eosinophils # 0.4 10^3/uL (0.0-0.8); Eosinophils % 4.4 %; Hematocrit 34.9 % (37.0-47.0); Hemoglobin 11.2 g/dL (11.5-15.3); Lymphocytes # 1.3 10^3/uL (0.8-4.8); Lymphocytes % 13.5 %; Mean Corpuscular HGB Conc 32.1 g/dL (30.0-36.0); Mean Corpuscular Hemoglobin 28.9 pg (28.0-34.0); Mean Corpuscular Volume 90.2 fl (81-99); Mean Platelet Volume 11.5 fL (7.4-10.4); Monocytes # 0.9 10^3/uL (0.2-0.9); Monocytes % 9.2 %; Neutrophils # 6.83 10^3/uL (1.8-7.7); Nucleated Red Blood Cells % 0 %; Platelet Count 259 10^3/cmm (130-400); Red Blood Count 3.87 10^6/uL (4.1-5.3); White Blood Count 9.5 10^3/uL (4.0-10.0)
[2021-09-02 07:08] VITALS: BP 114/50; PULSE 77; RESP 18; O2SAT 100
[2021-09-02 07:16] VITALS: PULSE 74; RESP 16; O2SAT 95
[2021-09-02] MEDS: ipratropium-albuterol 3 mL Neb INHALATION (07:16)
[2021-09-02 07:18] VITALS: PULSE 77
[2021-09-02 07:29] LABS: Alanine Aminotransferase 9 U/L (0-33); Albumin Level 4.6 g/dL (3.5-5.2); Alkaline Phosphatase 69 IU/L (35-105); Anion Gap 18.5 (5-19); Aspartate Amino Transferase 13 U/L (0-32); Blood Urea Nitrogen 10 mg/dL (8-23); Calcium 8.7 mg/dL (8.5-10.5); Carbon Dioxide 22 mmol/L (22-29); Chloride 103 mmol/L (98-107); Creatinine Clr Calc Pharmacy 58.7725; Globulin 2.4 g/dL (1.3-4.6); Glomerular Filtration Rate 62.5 mL/min (90-130); Glucose 96 mg/dL (65-115); Osmolality Calculated 287 mOsm/kg (285-295); Potassium 4.5 mmol/L (3.5-5.1); Sodium 139 mmol/L (136-145); Total Bilirubin 0.4 mg/dL (0.15-1.2)
[2021-09-02 07:30] LABS: Troponin(5th) Baseline 10 ng/L (0-10)
[2021-09-02 07:53] VITALS: BP 126/63; PULSE 84; O2SAT 99
== END 2021-09-02 08:05 | disposition home or self-care (01) ==
PROVIDERS: Emergency Provider Family Medicine; PCP Nurse Practitioner Family
DX: J44.1 Chronic obstructive pulmonary disease with (acute) exacerbation (principal); F17.210 Nicotine dependence, cigarettes, uncomplicated; Z79.82 Long term (current) use of aspirin; Z79.891 Long term (current) use of opiate analgesic; Z79.51 Long term (current) use of inhaled steroids
CPT/HCPCS: 71045; 80053; 84484; 85025; 93005; 94640; 96374; 99284; J2930

== ENCOUNTER 2021-09-04 08:24 | Outpatient (CLI) | payer MEDICARE, MEDICAID, SELFPAY ==
--- NOTE | 2021-09-04 08:34 | CT_ITS ---
WS: [id number] LDCT LUNG CANCER SCREENING HISTORY: NICOTINE Dependence, cigarettes TECHNIQUE: Axial imaging performed from the apices to 1 cm below the costophrenic angles. Coronal and sagittal reformats are submitted with axial MIP series. All CT scans at [facility] use at least one of these dose optimization techniques: automated exposure control; mA and/or kV adjustment per patient size (includes targeted exams where dose is matched to clinical indication); or iterativ e reconstruction. DLP: 71.71 mGy.cm DIvol: Mean CTDIvol: 1.60 (mGy) COMPARISON: None available. Diagnostic quality: Satisfactory Lung Nodules: No pulmonary nodule or mass. Benign granuloma RIGHT lower lobe. No endobronchial lesion s. Lungs: Chronic emphysema. Peripheral bulla noted in the posterior lower lobes. Heart: Normal size heart. Heavy calcification in the mitral annular valve plane. Other findings: Mild atherosclerosis aorta with no aneurysm. Normal size pulmonary artery. Large hiat al hernia. No adrenal mass. Increase in thoracic kyphosis. Degenerative disc disease. CT/CT lung screening [id number] IMPRESSION: LUNG-RADS: 1-Negative FOLLOW UP: 12 Month: Continue annual screening with LDCT OTHER FINDINGS (S MODIFIER): None.
== END 2021-09-04 08:25 | disposition home or self-care (01) ==
LOC: RAD 08:26
PROVIDERS: PCP Nurse Practitioner Family; Visit Provider Nurse Practitioner Family
DX: Z12.2 Encounter for screening for malignant neoplasm of respiratory organs (principal); F17.210 Nicotine dependence, cigarettes, uncomplicated
CPT/HCPCS: 71271

== ENCOUNTER → 2021-10-07 14:26 | Outpatient (BNVA) | payer MEDICARE, MEDICAID, SELFPAY | PROVIDERS: PCP Nurse Practitioner Family; Visit Provider Internal Medicine Rheumatology | DX: M06.041 Rheumatoid arthritis without rheumatoid factor, right hand (principal); M06.042 Rheumatoid arthritis without rheumatoid factor, left hand; Z79.899 Other long term (current) drug therapy; Z71.89 Other specified counseling; F17.200 Nicotine dependence, unspecified, uncomplicated | CPT/HCPCS: 99214 ==

== ENCOUNTER → 2021-12-15 10:49 | Outpatient (BNVA) | payer MEDICARE, MEDICAID, SELFPAY | PROVIDERS: PCP Nurse Practitioner Family; Visit Provider Orthopaedic Surgery | DX: M47.22 Other spondylosis with radiculopathy, cervical region (principal); M43.17 Spondylolisthesis, lumbosacral region | CPT/HCPCS: 72050; 72110; 99214 ==

== ENCOUNTER → 2022-01-26 14:18 | Outpatient (BNVA) | payer MEDICARE, MEDICAID, SELFPAY | PROVIDERS: PCP Nurse Practitioner Family; Visit Provider Internal Medicine Rheumatology | DX: M06.041 Rheumatoid arthritis without rheumatoid factor, right hand (principal); M06.042 Rheumatoid arthritis without rheumatoid factor, left hand; Z71.89 Other specified counseling; Z79.899 Other long term (current) drug therapy; F17.210 Nicotine dependence, cigarettes, uncomplicated; Z86.19 Personal history of other infectious and parasitic diseases | CPT/HCPCS: 99214 ==

== ENCOUNTER 2022-02-03 20:09 | Emergency (ER) | payer MEDICARE, MEDICAID, SELFPAY ==
[2022-02-03 20:14] VITALS: BP 172/110; PULSE 91; RESP 18; TEMP 36.9; O2SAT 96; BMI 28.7
[2022-02-03 20:18] VITALS: PULSE 87; RESP 16; O2SAT 97
--- NOTE | 2022-02-03 21:14 | W.ED.GENADLT ---
HPI - General Adult General: Chief complaint: General Medical Stated complaint: BACK PAIN Time Seen by Provider: 02/03/22 20:27 Source: patient Mode of arrival: ambulatory Limitations: no limitations History of Present Illness: Patient's in the emergency department this evening because she is worried about her kidney function. She states that she saw her doctor last week and did laboratory studies and then relayed to her that they were worried about her kidney function and we will going to refer to her principal bioinformatics specialist.She states she has had some low back pain the last 24 hours or so and some right flank pain and became concerned that it might reflect some change in her kidney function. She denies any dysuria frequency etc. She states her water intake is been normal for her which she says is quite a bit. She denies any history of kidney stones, frequent urinary tract infections etc. She does have a history of hypertension and takes her prescribed medications without fail. No back injuries. She has had a prior lumbar fusion but denies any difficulty with that clinical condition to include loss of bowel or bladder function, weakness numbness etc. She has a history of coronary disease had stents placed several years ago but known no ongoing chest pain etc. She also has a history of COPD and still smokes tobacco. Associated symptoms: Reports headache(s); Deny chest pain, dyspnea, nausea, rash, palpitations or vomiting Review of Systems Const: Denies: fever(s), chills or body aches Eyes: Denies: change in vision ENMT: Denies: throat pain, odynophagia, nasal discharge or nasal congestion Card: Denies: chest pain, palpitations or irregular heart rhythm Resp: Denies: dyspnea, productive cough or non-productive cough GI: Denies: abdominal pain, nausea, vomiting or diarrhea : Reports: flank pain; Denies: difficulty voiding, dysuria, urinary frequency, urinary urgency or urinary hesitancy Musc: Reports: back pain; Denies: neck pain, extremity pain or extremity swelling Skin/Breast: Denies: rash or pruritus Neuro: Reports: headache(s); Denies: numbness in extremities, weakness in extremities or sensory changes Endo: Denies: polyuria, polydipsia or tired all the time All/Imm: Denies: urticaria or throat swelling PFSH ED PFSH: Medical History CAD (coronary artery disease) Carpal tunnel syndrome of right wrist Chronic steroid use COPD (chronic obstructive pulmonary disease) Elevated erythrocyte sedimentation rate GERD (gastroesophageal reflux disease) Hiatal hernia High risk medication use Hyperlipidemia Hypertension Immunization counseling Inflammatory arthritis Osteoarthritis Seronegative rheumatoid arthritis of both hands Stress incontinence Surgical History H/O heart artery stent H/O rotator cuff surgery History of ankle surgery History of appendectomy History of appendectomy History of hernia surgery History of tonsillectomy Family History Mother Breast cancer Diagnosed in her 60's Diabetes Hypertension Sister Colon cancer, Onset Age: 67 Family/Other Cervical cancer maternal first cousin Grandfather CAD (coronary artery disease) paternal Other FH: CABG (coronary artery bypass surgery) Denies family history of Ovarian cancer Hyperlipidemia Chronic kidney disease (CKD) Anesthesia complication Lung disease Uterine cancer Stroke Social History Smoking and tobacco status: current every day smoker cigarettes Packs smoked per day: 1 Years cigarettes smoked: 53 Alcohol intake: current Alcohol intake frequency: few times a month Alcohol type: beer History of recent travel: No Physical Exam Narrative: EXAM NARRATIVE: Cooperative and appears to be in no acute distress. Const: COMMON NORMALS: no acute distress, average body habitus, patient oriented x3 and alert GENERAL APPEARANCE: cooperative and comfortable HENMT: COMMON NORMALS: normocephalic, Normal nasal mucous membranes and turbinates present, moist oral mucous membranes and oropharynx normal HEAD & SCALP: normocephalic FACE & SINUS: normal facial exam NOSE: Normal nasal mucous membranes and turbinates present Eye: COMMON NORMALS: Equal, round and reactive pupils present, EOMs intact bilaterally and conjunctivae normal CONJUNCTIVA: Yes conjunctivae normal PUPIL: Yes Equal, round and reactive pupils present Neck/C-Spine: COMMON NORMALS: full ROM, no lymphadenopathy, supple and no JVD Chest: COMMONS NORMALS: normal inspection of the chest Resp: COMMON NORMALS: normal respiratory effort, No retractions, No use of accessory muscles and clear to auscultation bilaterally EFFORT & INSPECTION: Yes able to speak in complete sentences AUSCULTATION: clear to auscultation bilaterally Cardio: COMMON NORMALS: no JVD, regular rate, regular rhythm, No murmurs present (Cardio) and Peripheral pulses 2+ throughout RATE: regular rate RHYTHM: regular rhythm PERIPHERAL PULSES: Peripheral pulses 2+ throughout GI: COMMON NORMALS: Normal to inspection, nondistended, normoactive bowel sounds present, Soft to palpation, non-tender and no masses PALPATION: Yes Soft to palpation : COMMON NORMALS: Yes no CVA tenderness BLADDER/KIDNEY EXAM: Yes no CVA tenderness Back/Pelvis: COMMON NORMALS: no CVA tenderness, thoracic and lumbar spine normal to inspection and straight leg raise negative bilaterally OTHER: No skin rashes or ecchymosis noted. No midline tenderness noted to palpation. She does have tenderness over the sacroiliac joints and in the soft tissue surrounding the posterior superior iliac spine regions bilaterally. Extremity: COMMON NORMALS: normal to inspection, full ROM, capillary refill normal, no calf tenderness and no pedal edema Neuro: COMMON NORMALS: patient oriented x3, moves all extremities, no sensory deficits noted and deep tendon reflexes 2+ bilaterally SENSORIUM/ORIENTATION: Yes alert CRANIAL NERVES: Yes CN normal except as noted SPEECH: speech normal Psych: COMMON NORMALS: mental status grossly normal Skin: COMMON NORMALS: no rashes or lesions noted, no wounds and turgor normal GENERAL SKIN EXAM: no rashes or lesions noted and turgor normal Course Reevaluation(s): Reevaluation #1: Patient was reevaluated no new or focal findings on repeat examination. I did share with her her findings this evening which did not suggest urinary tract infection and also preserved kidney function compared with BUN and creatinine and GFR that is available in our records. Given her clinical picture and examination I feel this is more mechanical low back pain than manufacturer's service representative of renal colic, infection etc. Time: 22:50 Vital Signs: Vital signs: Vital Signs Temperature 98.5 F 02/03/22 20:14 Pulse Rate 87 02/03/22 20:18 Respiratory Rate 18 02/03/22 21:32 Blood Pressure 129/71 02/03/22 21:32 Pulse Oximetry 93 02/03/22 21:32 Oxygen Delivery Me thod 02/03/22 20:18 MDM - General Adult Medical Decision Making Patient who developed some low back pain who had prior knowledge of primary care concerned about renal function presented to the emergency department because of concerns about possible worsening kidney function. She had no history of fevers dysuria renal colic symptoms etc. Clinical examination revealed lower back reproducible tenderness in the. Posterior superior iliac spine and lumbar regions. No evidence of long track signs, or other red flag symptoms at this time. Her kidney function is consistent with that which she is had in the past and she has no evidence of infection. I have shared all this information with her and advised her to use both ice massage and/or acetaminophen for back pain which should improve over the next few days. If she is having worsening back pain, fevers, chills or other concerning symptoms she should be reevaluated and she voiced understanding of that recommendation. Otherwise she should follow-up with her primary care doctor as scheduled. Lab Data I reviewed the patient's lab results. : 02/03/22 20:13 02/03/22 20:13 Laboratory Results WBC 7.7 10^3/uL (4.0-10.0) 02/03/22 20:13 RBC 4.34 10^6/uL (4.1-5.3) 02/03/22 20:13 Hgb 13.3 g/dL (11.5-15.3) 02/03/22 20:13 Hct 39.7 % (37.0-47.0) 02/03/22 20:13 MCV 91.5 fl (81-99) 02/03/22 20:13 MCH 30.6 pg (28.0-34.0) 02/03/22 20:13 MCHC 33.5 g/dL (30.0-36.0) 02/03/22 20:13 RDW 13.0 % (12.1-15.1) 02/03/22 20:13 Plt Count 242 10^3/cmm (130-400) 02/03/22 20:13 MPV 11.1 fL (7.4-10.4) H 02/03/22 20:13 Neut % (Auto) 49.6 % 02/03/22 20:13 Lymph % (Auto) 37.2 % 02/03/22 20:13 [place] % (Auto) 7.2 % 02/03/22 20:13 Eos % (Auto) 5.0 % 02/03/22 20:13 Baso % (Auto) 0.6 % 02/03/22:13 Neut # (Auto) 3.83 10^3/uL (1.8-7.7) 02/03/22 20:13 Lymph # (Auto) 2.9 10^3/uL (0.8-4.8) 02/03/22 20:13 [place] # (Auto) 0.6 10^3/uL (0.2-0.9) 02/03/22 20:13 Eos # (Auto) 0.4 10^3/uL (0.0-0.8) 02/03/22 20:13 Baso # (Auto) 0.1 10^3/uL (0.0-0.1) 02/03/22 20:13 Nucleated RBC % (auto) 0 % 02/03/22 20:13 Nucleated RBCs # 0.0 /100WBC 02/03/22 20:13 Sodium 139 mmol/L (136-145) 02/03/22 20:13 Potassium 3.7 mmol/L (3.5-5.1) 02/03/22 20:13 Chloride 102 mmol/L (98-107) 02/03/22 20:13 Carbon Dioxide 24 mmol/L (22-29) 02/03/22 20:13 Anion Gap 16.7 (5-19) 02/03/22 20:13 BUN 16 mg/dL (8-23) 02/03/22 20:13 Creatinine 1.0 mg/dL (0.5-0.9) H 02/03/22 20:13 GFR Calculation 55.3 mL/min (90-130) L 02/03/22 20:13 Glucose 81 mg/dL (65-115) 02/03/22 20:13 Calculated Osmolality 288 mOsm/kg (285-295) 02/03/22 20:13 Calcium 10.1 mg/dL (8.5-10.5) 02/03/22 20:13 Total Bilirubin 0.2 mg/dL (0.15-1.2) 02/03/22 20:13 AST 19 U/L (0-32) 02/03/22 20:13 ALT 19 U/L (0-33) 02/03/22 20:13 Alkaline Phosphatase 59 U/L (35-105) 02/03/22 20:13 Total Protein 7.4 g/dL (6.6-8.7) 02/03/22 20:13 Albumin 4.4 g/dL (3.5-5.2) 02/03/22 20:13 Globulin 3.0 g/dL (1.3-4.6) 02/03/22 20:13 Urine Color Yellow (Yellow) 02/03/22 21:37 Urine Appearance Clear (CLEAR) 02/03/22 21:37 Urine pH 6 (5-7) 02/03/22 21:37 Ur Specific [place] 1.015 (1.005-1.030) 02/03/22 21:37 Urine Protein Neg (Negative) 02/03/22 21:37 Urine Glucose (UA) Norm (Normal) 02/03/22 21:37 Urine Ketones Negative (Negative) 02/03/22 21:37 Urine Blood Neg (Negative) 02/03/22 21:37 Urine Nitrate Negative (Negative) 02/03/22 21:37 Urine Bilirubin Neg (Negative) 02/03/22 21:37 Urine Urobilinogen Norm mg/dL (Negative) 02/03/22 21:37 Ur Leukocyte Esterase Negative (Negative) 02/03/22 21:37 Discharge Plan Discharge Patient Disposition: Home Clinical Impression: Low back pain, Mild renal insufficiency Condition: Stable Prescriptions: No Action ipratropium-albuterol 0.5 mg-3 mg(2.5 mg base)/3 mL solution for nebulization 3 ml INHALATION Q6H PRN (Reason: Shortness Of Breath) nitroglycerin [Nitrostat] 0.4 mg tablet, sublingual 0.4 mg SUBLINGUAL Q5M PRN (Reason: Chest Pain) Qty: 25 3RF alendronate 70 mg tablet 70 mg PO .Qweekly montelukast 10 mg tablet 10 mg PO DAILY magnesium oxide 500 mg capsule 500 mg PO DAILY rosuvastatin 20 mg capsule, sprinkle 20 mg PO DAILY aspirin [Adult Low Dose Aspirin] 81 mg tablet,delayed release (DR/EC) 81 mg PO DAILY ascorbic acid (vitamin C) 500 mg tablet 1 gm PO DAILY multivitamin Tablet 1 tab PO DAILY calcium carbonate [Calcium 600] 600 mg calcium (1,500 mg) tablet 600 mg PO DAILY folic acid 1 mg tablet 1 mg PO DAILY Qty: 90 3RF oxybutynin chloride 5 mg tablet extended release 24hr 5 mg PO DAILY 30 Days Qty: 30 0RF Rx Instructions: needs to keep f/u appt. for additional refills hydrocodone-acetaminophen 5-325 mg tablet 1 - 2 tab PO .Q4-6H PRN (Reason: pain) 7 Days Qty: 40 0RF prednisone 20 mg tablet 20 mg PO DAILY Qty: 15 0RF Rx Instructions: 60mg on day 1,2,3 40mg on day 4,5 20mg on day 6,7 diclofenac sodium 1 % gel 2 g TOPICAL QID PRN (Reason: Pain) Qty: 100 2RF Rx Instructions: apply to affected area as needed methotrexate sodium 2.5 mg tablet See Rx Instructions PO .Q7days Qty: 30 3RF Rx Instructions: take 6 tabs on same day once a week PO .Q7days; albuterol sulfate 90 mcg/actuation Hfa Aerosol Inhaler 2 puff INHALATION QID PRN (Reason: Shortness Of Breath) amlodipine 10 mg tablet 10 mg PO DAILY Qty: 60 0RF metoprolol tartrate 50 mg tablet 50 mg PO BID Qty: 90 0RF omeprazole 40 mg Capsule,Delayed Release(Dr/Ec) 40 mg PO DAILY Rx Instructions: pt states she has been out of this medication for 2 days ropinirole 1 mg tablet 4 mg PO BEDTIME Discharge Orders: Discharge ED (Routine); Ordered 02/03/22 Ordered By: Eliel Sagastume Referrals: Kortney Aguirre FNP [Primary Care Provider] - Discharge Diet: Usual diet Discharge Activity: Increase activity as tolerated Patient Instructions: Opioid Safety, Pain Management Activity Restrictions/Additional Instructions: As we discussed while you are in the emergency department your results to see me did not suggest any change in your kidney function. Your presentation this evening suggest this is more of a mechanical back pain related to likely strain of the muscles tendons and other soft tissues in your lower back. We recommend stretching exercises, ice massage, acetaminophen for discomfort. If your symptoms do not improve in the next 3 to 5 days, worsen, or any other concerning symptoms develop such as fever weakness etc. should you you should return to this or the nearest emergency department for reevaluation. Coding Level of Care Code ED Information Systems Security Specialist for Ludmila Fwelizabeth Exam Comprehensive
[2022-02-03] MEDS: sodium chloride 0.9% 1,000 ML 999 ML IV (21:19)
[2022-02-03 21:21] LABS: Basophils # 0.1 10^3/uL (0.0-0.1); Basophils % 0.6 %; Eosinophils # 0.4 10^3/uL (0.0-0.8); Hematocrit 39.7 % (37.0-47.0); Hemoglobin 13.3 g/dL (11.5-15.3); Lymphocytes # 2.9 10^3/uL (0.8-4.8); Lymphocytes % 37.2 %; Mean Corpuscular HGB Conc 33.5 g/dL (30.0-36.0); Mean Corpuscular Hemoglobin 30.6 pg (28.0-34.0); Mean Corpuscular Volume 91.5 fl (81-99); Mean Platelet Volume 11.1 fL (7.4-10.4); Monocytes # 0.6 10^3/uL (0.2-0.9); Monocytes % 7.2 %; Neutrophils # 3.83 10^3/uL (1.8-7.7); Neutrophils % 49.6 %; Nucleated Red Blood Cells % 0 %; Platelet Count 242 10^3/cmm (130-400); Red Blood Count 4.34 10^6/uL (4.1-5.3); White Blood Count 7.7 10^3/uL (4.0-10.0)
[2022-02-03 21:32] VITALS: BP 129/71; RESP 18; O2SAT 93
[2022-02-03] MEDS: acetaminophen 500 mg Tablet 1000 MG PO (21:42)
[2022-02-03 21:44] LABS: Add Urine Microscopic? NO; Charge for UA Resulting for Rev
[2022-02-03 21:46] LABS: Bilirubin Urine Neg (Negative); Blood Urine Neg (Negative); Glucose Urine UA Norm (Normal); Ketones Urine Negative (Negative); Leukocyte Esterase Urine Negative (Negative); Nitrate Urine Negative (Negative); Protein Urine Neg (Negative); Specific Gravity, Urine 1.015 (1.005-1.030); Urine Appearance Clear (CLEAR); Urine Color Yellow (Yellow); Urobilinogen Urine Norm (Negative); pH Urine 6 (5-7)
[2022-02-03 21:48] LABS: Alanine Aminotransferase 19 U/L (0-33); Albumin Level 4.4 g/dL (3.5-5.2); Alkaline Phosphatase 59 U/L (35-105); Aspartate Amino Transferase 19 U/L (0-32); Blood Urea Nitrogen 16 mg/dL (8-23); Calcium 10.1 mg/dL (8.5-10.5); Carbon Dioxide 24 mmol/L (22-29); Chloride 102 mmol/L (98-107); Glomerular Filtration Rate 55.3 mL/min (90-130); Glucose 81 mg/dL (65-115); Osmolality Calculated 288 mOsm/kg (285-295); Sodium 139 mmol/L (136-145); Total Bilirubin 0.2 mg/dL (0.15-1.2); Total Protein 7.4 g/dL (6.6-8.7)
[2022-02-03 22:01] LABS: Anion Gap 16.7 (5-19); Potassium 3.7 mmol/L (3.5-5.1)
[2022-02-03 23:00] VITALS: BP 119/74; PULSE 95; RESP 20; O2SAT 95
[2022-02-03 23:15] VITALS: BP 119/74; PULSE 95; RESP 20; O2SAT 95
== END 2022-02-03 23:16 | disposition home or self-care (01) ==
PROVIDERS: Emergency Provider Emergency Medicine; PCP Nurse Practitioner Family
DX: M54.50 Low back pain, unspecified (principal); N28.9 Disorder of kidney and ureter, unspecified; Z79.82 Long term (current) use of aspirin; F17.210 Nicotine dependence, cigarettes, uncomplicated; I25.10 Atherosclerotic heart disease of native coronary artery without angina pectoris; J44.9 Chronic obstructive pulmonary disease, unspecified; E78.5 Hyperlipidemia, unspecified; I10 Essential (primary) hypertension
CPT/HCPCS: 80053; 81003; 85025; 96360; 99284; J7030

== ENCOUNTER 2022-02-16 06:54 | Outpatient (CLI) | payer MEDICARE, MEDICAID, SELFPAY ==
--- NOTE | 2022-02-16 07:15 | MR_ITS ---
WS: [id number] MRI CERVICAL SPINE NONCONTRAST HISTORY: Pain down both arms. COMPARISON: 10/31/2019 Technique: Multiplanar, multisequence noncontrast imaging of the cervical spine. Degraded images by motion and breathing artifact. Slight increase in the cervical lordosis. 2 mm anterolisthesis of C3 and C4. No fractures. Disc space s are moderately narrowed throughout the cervical and upper thoracic spine. Signal within the cervical cord is normal. Visualized posterior fossa is unremarkable. Craniocervical junction, C1 and C2 relationship, odontoid process and soft tissues are normal. C2-C3: Mild bilateral facet arthritis, RIGHT greater than LEFT. No stenosis. C3-C4: Small central disc protrusion with bilateral facet joint arthritis. Mild bilateral foraminal n arrowing. C4-C5: Diffuse disc bulging and osteophytic ridging. Moderate bilateral facet joint arthritis similar to the prior study. Slightly greater on the RIGHT. Mild bilateral foraminal stenosis. C5-C6: Diffuse osteophytic ridging and disc bulging. Severe bilateral facet joint arthritis, LEFT gre ater than RIGHT. Moderate central stenosis with severe bilateral foraminal stenosis, LEFT greater rosa n RIGHT with mild progression. C6-C7: Diffuse osteophytic ridging with moderate bilateral facet joint arthritis. Severe bilateral fo raminal stenosis and mild central stenosis. C7-T1: Mild facet arthritis. Only mild LEFT foraminal narrowing. Paraspinal soft tissue are normal. MR/MR cervical spin wo con* [id number] IMPRESSION: 1. Multilevel advanced spondylitic changes with only mild progression since . Multilevel osteophytosis and facet joint arthritis. 2. Moderate central with severe bilateral foraminal stenosis at C5-6. 3. Mild central and severe bilateral foraminal stenosis at C6-7. 4. Mild bilateral foraminal stenosis at C3-4 and C4-5.
== END 2022-02-16 06:55 | disposition home or self-care (01) ==
LOC: RAD 06:54
PROVIDERS: PCP Nurse Practitioner Family; Visit Provider Orthopaedic Surgery
DX: M47.22 Other spondylosis with radiculopathy, cervical region (principal); M25.78 Osteophyte, vertebrae; M48.02 Spinal stenosis, cervical region
CPT/HCPCS: 72141; 99214

== ENCOUNTER → 2022-02-23 09:19 | Outpatient (BNVA) | payer MEDICARE, MEDICAID, SELFPAY | PROVIDERS: PCP Nurse Practitioner Family; Visit Provider Anesthesiology Pain Medicine | DX: M47.22 Other spondylosis with radiculopathy, cervical region (principal); M47.812 Spondylosis without myelopathy or radiculopathy, cervical region; M43.10 Spondylolisthesis, site unspecified; M79.601 Pain in right arm; M79.602 Pain in left arm; F17.210 Nicotine dependence, cigarettes, uncomplicated | CPT/HCPCS: 99204 ==

== ENCOUNTER → 2022-03-23 13:15 | Outpatient (BNVA) | payer MEDICARE, MEDICAID, SELFPAY | PROVIDERS: PCP Nurse Practitioner Family; Visit Provider Anesthesiology Pain Medicine | DX: M54.12 Radiculopathy, cervical region (principal) | CPT/HCPCS: 62321 ==

== ENCOUNTER → 2022-04-22 08:04 | Outpatient (BNVA) | payer MEDICARE, MEDICAID, SELFPAY | PROVIDERS: PCP Nurse Practitioner Family; Visit Provider Orthopaedic Surgery | DX: M54.50 Low back pain, unspecified (principal); Z98.890 Other specified postprocedural states; Z98.1 Arthrodesis status | CPT/HCPCS: 72110; 99214 ==

== ENCOUNTER 2022-06-07 07:29 | Outpatient (CLI) | payer MEDICARE, MEDICAID, SELFPAY ==
--- NOTE | 2022-06-07 08:00 | MR_ITS ---
WS: [id number] MRI LUMBAR SPINE NONCONTRAST HISTORY: back pain COMPARISON: 06/30/2020 TECHNIQUE: Sagittal and axial multisequence imaging is submitted. Increase in thoracic kyphosis. Small central disc protrusions within the upper thoracic spine. No com pression fractures. No cord compression. Prior L4-S1 posterior lumbar fusion is new since 06/30/2020. Stable L5 spondylolisthesis of 4 mm. The remaining disc spaces are slightly narrowed with desiccation. Conus terminates normally at L1-2 disc level. L1-L2: Mild disc bulging and osteophytic ridging with facet joint arthritis. Mild RIGHT foraminal graciela nosis. L2-L3: Diffuse annular disc bulging and osteophytic ridging. Moderate bilateral facet joint arthritis . Bilateral small foraminal disc protrusions. RIGHT foraminal disc protrusion extends into the LEFT s ubarticular recess. There is mild central with moderate bilateral subarticular recess and foraminal s tenosis. Slightly greater contact on the LEFT L2 and L3 nerve roots. L3-L4: Diffuse annular disc bulging and osteophytic ridging with facet and ligamentum flavum hypertro phy. Disc is asymmetrically extending to the LEFT. Moderate-sized LEFT foraminal disc protrusion. Mod erate central, bilateral subarticular recess and foraminal stenosis which has progressed since the pr ior study. L4-L5: Posterior laminectomy defect. Patent thecal sac with mild clumping of the nerve roots. Thecal sac is deformed. Marked bilateral facet joint arthritis. Moderate RIGHT and mild LEFT foraminal steno sis. L5-S1: Diffuse disc bulging and facet arthritis. Central stenosis. Large posterior laminectomy defect . Moderate bilateral foraminal stenosis. Bilateral adnexal cystic masses. RIGHT adnexal cyst is at least 4.0 x 4.3 cm. MR/MR lumbar spine wo con* [id number] IMPRESSION: 1. Since the prior MRI of 06/30/2020 patient has undergone posterior lumbar fus ion from L4 to S1. 2. Mild central, moderate bilateral subarticular recess and foraminal stenosis at L2-3. Greater disc contact on the LEFT L2 and L3 nerve roots. Progressed si nce the prior study. 3. Moderate central, bilateral subarticular recess and foraminal stenosis at L 3-4 which has progressed since the prior study. 4. Moderate RIGHT and mild LEFT foraminal stenosis at L4-5. Central stenosis h as improved postoperatively. 5. Moderate bilateral foraminal stenosis at L5-S1. 6. No progression of the grade 1 anterolisthesis of L5. 7. Bilateral adnexal cystic masses. Consider follow-up transvaginal pelvic ult rasound to further evaluate.
== END 2022-06-07 07:30 | disposition home or self-care (01) ==
LOC: RAD 07:31
PROVIDERS: PCP Nurse Practitioner Family; Visit Provider Orthopaedic Surgery
DX: Z98.1 Arthrodesis status (principal); M48.061 Spinal stenosis, lumbar region without neurogenic claudication; M48.07 Spinal stenosis, lumbosacral region
CPT/HCPCS: 72148

== ENCOUNTER → 2022-06-15 07:57 | Outpatient (BNVA) | payer MEDICARE, MEDICAID, SELFPAY | PROVIDERS: PCP Nurse Practitioner Family; Visit Provider Orthopaedic Surgery | DX: M48.061 Spinal stenosis, lumbar region without neurogenic claudication (principal); Z98.1 Arthrodesis status | CPT/HCPCS: 99214 ==

== ENCOUNTER → 2022-08-10 12:47 | Outpatient (BNVA) | payer MEDICARE, MEDICAID, SELFPAY | PROVIDERS: PCP Nurse Practitioner Family; Visit Provider Internal Medicine Cardiovascular Disease | DX: E78.5 Hyperlipidemia, unspecified (principal); I10 Essential (primary) hypertension; I25.119 Atherosclerotic heart disease of native coronary artery with unspecified angina pectoris; F17.210 Nicotine dependence, cigarettes, uncomplicated; Z79.82 Long term (current) use of aspirin | CPT/HCPCS: 99213 ==